=== PATIENT | female | born 1960 | race Caucasian/White ===

== ENCOUNTER 2016-11-08 18:24 | Emergency (ER) | payer OTHER ==
[2016-11-08 18:44] VITALS: TEMP 36.9; Ht 177.8 cm
[2016-11-08] MEDS ORDERED: HYDROCODONE/ACETAMOPHEN 5/325MG TAB PO ONE (19:00)
--- NOTE | 2016-11-08 19:47 | DIAGNOSTIC IMAGING REPORT ---
LEFT ANKLE MIN 3 VIEWS ROUTINE CLINICAL HISTORY: Fall. Left ankle pain trauma. Pain. COMPARISON: None. DISCUSSION: Oblique fracture distal fibula. Ankle mortise is aligned anatomically. Moderate soft tissue edema IMPRESSION: Oblique fracture distal fibula Electronically signed by: Hugo Boone M.D. 11/08/2016 7:46 PM Dictated Date/Time: 11/08/2016 7:45 PM
--- NOTE | 2016-11-08 19:49 | DIAGNOSTIC IMAGING REPORT ---
RIGHT ANKLE MIN 3 VIEWS ROUTINE CLINICAL HISTORY: Fall. Right ankle pain Right trauma COMPARISON: None. DISCUSSION: The bones and joint spaces appear intact. There is no evidence of fracture, dislocation or bony disease. Mild soft tissue edema. Ankle mortise is aligned anatomically IMPRESSION: Mild soft tissue edema. No acute bony abnormality. Electronically signed by: Hugo Boone M.D. 11/08/2016 7:47 PM Dictated Date/Time: 11/08/2016 7:47 PM
--- NOTE | 2016-11-08 19:49 | DIAGNOSTIC IMAGING REPORT ---
LEFT KNEE 3 VIEWS CLINICAL HISTORY: Fall. Left knee trauma. Pain. COMPARISON: None. DISCUSSION: The bones and joint spaces appear intact. There is no evidence of fracture, dislocation or bony disease. There is no evidence for soft tissue swelling. IMPRESSION: Negative study. Electronically signed by: Hugo Boone M.D. 11/08/2016 7:48 PM Dictated Date/Time: 11/08/2016 7:48 PM
[2016-11-08] MEDS ORDERED: HYDR-5688 PO (20:06)
[2016-11-08] MEDS ORDERED: NORCO 5/325MG HOME PACK PO ONE (20:15)
[2016-11-08 21:20] VITALS: BP 136/84; PULSE 80; O2SAT 99
--- NOTE | 2016-11-09 11:32 | EMERGENCY ROOM VISIT NOTE ---
History First contact with patient: 18:47 Chief Complaint: ANKLE PAIN Stated Complaint: FELL- INJURED LEFT ANKLE, RIGHT ANKLE PAIN History of Present Illness The patient is a 56 year old female who presents to the Emergency Room with complaints of left knee and bilateral ankle pain after falling down 3 steps at home. The patient states that she felt a crack after the fall, and was not able to walk on her left leg. The patient does not have a history of significant injury to her lower extremities in the past. She did not strike her head or lose consciousness. No laceration or bleeding. The injury occurred less than one hour ago. She has not taken anything [id number] for her discomfort. Her discomfort worsens with attempted weightbearing and palpation of her left ankle. She rates her discomfort a 4/10 at rest and 9/10 with certain movement. Review of Systems More than 10 systems were reviewed and otherwise negative with the exception of history of present illness. Past Medical/Surgical History No chronic medical disease Family History No pertinent family history Social History Smoking Status: Never Smoker Housing Status: lives with family Current/Historical Medications Scheduled PRN Hydrocodone/Acetaminophen 5MG/325MG ([place] 5MG/325MG), 1-2 TABLET PO Q6 PRN for Pain Allergies Coded Allergies: Penicillins (Verified Allergy, Unknown, hives, 11/08/16) Physical Exam Vital Signs Date Time Temp Pulse Resp B/P Pulse Ox O2 Delivery O2 Flow Rate FiO2 11/08/16 21:20 80 18 136/84 99 11/08/16 18:44 36.9 80 18 136/84 99 Room Air Pain Rating (0-10): 0 Physical Exam VITALS: Vitals are noted on the nurse's note and reviewed by myself. Vital signs stable. GENERAL: Well-developed, well-nourished, white female who is in mild to moderate discomfort secondary to her stated complaint. Patient is cooperative with the examination. HEAD: Normocephalic atraumatic. HEART: Regular rate and rhythm without murmurs gallops or rubs. LUNGS: Clear to auscultation bilaterally without wheezes, rales or rhonchi. No retractions or accessory muscle use. MUSCULOSKELETAL: Mild tenderness without ecchymosis or edema of the right ankle is appreciated. Left knee is mildly tender over the patella. Negative anterior and posterior drawers. No ligamentous laxity. The left ankle is notably tender over the lateral malleolus with giving edema. There is no tenderness of the bilateral feet and neurovascular status is intact to the distal lower extremities. NEURO: Patient was alert and oriented to person place and time. CN II through XII grossly intact. Medical Decision & Procedures ER Provider Diagnostic Interpretation: LEFT ANKLE MIN 3 VIEWS ROUTINE CLINICAL HISTORY: Fall. Left ankle pain trauma. Pain. COMPARISON: None. DISCUSSION: Oblique fracture distal fibula. Ankle mortise is aligned anatomically. Moderate soft tissue edema IMPRESSION: Oblique fracture distal fibula RIGHT ANKLE MIN 3 VIEWS ROUTINE CLINICAL HISTORY: Fall. Right ankle pain Right trauma COMPARISON: None. DISCUSSION: The bones and joint spaces appear intact. There is no evidence of fracture, dislocation or bony disease. Mild soft tissue edema. Ankle mortise is aligned anatomically IMPRESSION: Mild soft tissue edema. No acute bony abnormality. LEFT KNEE 3 VIEWS CLINICAL HISTORY: Fall. Left knee trauma. Pain. COMPARISON: None. DISCUSSION: The bones and joint spaces appear intact. There is no evidence of fracture, dislocation or bony disease. There is no evidence for soft tissue swelling. IMPRESSION: Negative study. Medications Administered Medications (Trade) Dose Ordered Sig/Clare Route Start Time Stop Time Status Last Admin Dose Admin Acetaminophen/ Hydrocodone Bitart ([place] 5/325 Tab) 2 tab NOW ONCE PO 11/08/16 19:00 11/08/16 19:01 DC 11/08/16 19:31 2 TAB Acetaminophen/ Hydrocodone Bitart ([place] 5/325mg Home Pack) 1 homepack UD ONCE PO 11/08/16 20:15 11/08/16 20:16 DC 11/08/16 21:14 1 HOMEPACK ED Course Physical exam and history were performed. Nursing notes and EMR were reviewed. Patient appears to have fallen and suffered injury to her ankles and her left knee. On exam she has edema and ecchymosis over the lateral malleolus of the left ankle. The patient was given oral Vicodin here in the department and x- rays were performed. X-rays were notable for a distal left fibula fracture, which clinically correlates with the patient's symptoms. No significant findings were noted of the left knee or right ankle. I discussed options of care with the patient, and she will be placed in an Ortho-Glass splint. This was performed with neurovascular status remaining intact. I offered the patient crutches, but she had a preference for a walker, and she was provided a walker. The patient will need to follow with orthopedics and was given the information for [facility]. She will also be given a prescription of Vicodin for pain control. She was otherwise invited back to the ER with any new, worsening, or concerning symptoms. The chart was completed utilizing [employer] Speech Voice Recognition Software. Grammatical errors, random word insertions, pronoun errors, and incomplete sentences are an occasional consequence of this system due to software limitations, ambient noise, and hardware issues. Any formal questions or concerns about the content, text, or information contained within the body of this dictation should be directly addressed to the provider for clarification. . Medical Decision Differential diagnosis includes, but is not limited to: Sprain, strain, fracture , dislocation, subluxation, contusion, and others Impression Primary Impression: Fracture of distal end of left fibula Additional Impression: Fall Departure Information Dispostion Home / Self-Care Condition GOOD Prescriptions Hydrocodone/Acetaminophen 5MG/325MG ([place] 5MG/325MG) Tab 1-2 TABLET PO Q6 Y for Pain, #24 TAB For Initial Treatment Prov: Brian Wise PA-C 11/08/16 Referrals Barrett Ho D.O. Forms HOME CARE DOCUMENTATION FORM, IMPORTANT VISIT INFORMATION Patient Instructions My [facility], ED Fx Ankle General, ED Compartment Syndrome At Risk For Additional Instructions You were seen and evaluated today on an emergency basis only. This is not a substitute for, or an effort to provide, complete comprehensive medical care. It is not possible to recognize and treat all injuries or illnesses in a single emergency department visit. For this reason it is recommended that you followup with [facility] , Dr. Ho's office, by telephone on Friday. Call at 8 AM when the office opens and let them know you were seen in the emergency department. They will help schedule your appointment next week. For baseline pain relief you may alternate ibuprofen and acetaminophen every 4 hours for pain control. Take 600 mg ibuprofen (Advil) and then 4 hours later take 1000 mg acetaminophen (Tylenol). Do not take more than 3000 mg acetaminophen in a single day. [place] (hydrocodone/acetaminophen) 5/325 mg ONE or TWO every 6 hours as needed for worsening breakthrough pain. Do not drink or drive on [place]. This medication will likely make you tired. Do not take [place] and Tylenol at the same time as both contain acetaminophen. [place] may cause constipation. You may wish to take an [id number] stool softener like Colace if this occurs. Do not get your splint wet. Use your walker at all times. Take every precaution to prevent falling. You are welcome to return to the emergency department anytime with new, worsening, or concerning symptoms. Problem Qualifiers
== END 2016-11-08 21:22 | disposition home or self-care (01) ==
LOC: C.EDB 18:27 → C.EDD 21:22
DX: S82.62XA Displaced fracture of lateral malleolus of left fibula, initial encounter for closed fracture (principal); M25.571 Pain in right ankle and joints of right foot; M25.562 Pain in left knee; W10.8XXA Fall (on) (from) other stairs and steps, initial encounter; Y92.019 Unspecified place in single-family (private) house as the place of occurrence of the external cause; R60.9 Edema, unspecified

== ENCOUNTER 2016-12-08 17:09 | Inpatient (IN) | payer OTHER ==
[~2016-12-08] VITALS: Ht 180.3 cm; Wt 87.0 kg
[~2016-12-08 17:09] MED LIST: HYDR-5688 PO
[2016-12-08] MEDS ORDERED: IBUP-1050 PO (18:01)
[2016-12-08 18:10] LABS: BASO % 0.3 %; BASO ABS # 0.02 K/uL (0-0.2); COMPLETE YES; EOS % 2.7 %; HEMATOCRIT 38.7 % (37-47); LYMPH % 20.2 %; LYMPH ABS # 1.37 K/uL (1.2-3.4); MEAN CELL VOLUME 94.9 fL (80-100); MEAN CORPUSCULAR HEMOGLOBIN 32.1 pg (25-34); MEAN CORPUSCULAR HGB CONC 33.9 g/dl (32-36); MEAN PLATELET VOLUME 11.2 fL (7.4-10.4); MONO % 8.7 %; NEUT % 68.1 %; PLATELET COUNT 192 K/uL (130-400); RED BLOOD COUNT 4.08 M/uL (4.2-5.4); WHITE BLOOD COUNT 6.79 K/uL (4.8-10.8)
[2016-12-08 18:28] LABS: ALT/SGPT 20 U/L (12-78); AST/SGOT 12 U/L (15-37); BLOOD UREA NITROGEN 14 mg/dl (7-18); BUN/CREATININE RATIO 13.7 (10-20); CALCIUM 9.4 mg/dl (8.5-10.1); CARBON DIOXIDE 28 mmol/L (21-32); CHLORIDE 103 mmol/L (98-107); GLUCOSE 80 mg/dl (70-99); POTASSIUM 4.5 mmol/L (3.5-5.1); SODIUM 139 mmol/L (136-145)
[2016-12-08 18:31] LABS: ALB/GLOB RATIO 1.2 (0.9-2); ALKALINE PHOSPHATASE 86 U/L (45-117)
[2016-12-08 18:36] LABS: PROTHROMBIN TIME (PATIENT) 10.5 SECONDS (9.0-12.0)
--- NOTE | 2016-12-08 18:45 | DIAGNOSTIC IMAGING REPORT ---
ULTRASOUND LEFT LOWER EXTREMITY VENOUS CLINICAL HISTORY: Left leg pain and swelling. COMPARISON STUDY: No priors. TECHNIQUE: Real-time, grayscale, and color Doppler sonography of the deep veins of the left lower extremity was performed from the inguinal crease to the calf. Compression and augmentation were utilized. FINDINGS: There is nonocclusive deep venous thrombosis identified in the left calf within the peroneal vein. The remaining calf vessels are patent. No above knee deep venous thrombosis identified in the left lower extremity. The common femoral, superficial femoral, and popliteal veins are patent and normally compressible. The greater saphenous vein and the profunda femoris vein at the junction with the common femoral vein are clear. IMPRESSION: 1. There is nonocclusive deep venous thrombosis identified in the left calf within the peroneal vein. 2. There is no sonographic evidence of above knee deep venous thrombosis identified in the left lower extremity. Electronically signed by: Yemi Villatoro M.D. 12/08/2016 6:43 PM Dictated Date/Time: 12/08/2016 6:41 PM
--- NOTE | 2016-12-08 19:59 | DIAGNOSTIC IMAGING REPORT ---
CT VENOGRAM OF THE PELVIS CLINICAL HISTORY: Cyanosis of the left leg. Left lower extremity deep venous thrombosis. Reported history of recent left leg fracture. COMPARISON STUDY: Ultrasound of the left lower extremity dated 12/08/2016. TECHNIQUE: CT venogram of the pelvis is performed from the pelvic inlet to the proximal femora following the IV administration of 116 cc of Optiray 320. Images reviewed in the axial, sagittal, and coronal planes. IV contrast was administered without complication. CT DOSE: 319.89 mGy.cm FINDINGS: The right iliac veins and the right common femoral vein opacify normally with IV contrast. There is extensive and occlusive appearing deep venous thrombosis identified throughout the left iliac venous system. This extends from the iliac bifurcation to the left common femoral artery, and involves both the left internal and external iliac veins. There is mild stranding around the left internal and external iliac veins. The iliac arteries are widely patent. The bladder, uterus, and adnexa are normal as visualized. The visualized bowel loops are normal in caliber. A normal appendix is identified. There is no pelvic sidewall or inguinal lymphadenopathy. There is a small fat-containing umbilical hernia. The bony pelvis an proximal femora are maintained. IMPRESSION: 1. Extensive deep venous thrombosis is identified involving the left pelvic veins. This extends from the iliac bifurcation into the left common femoral vein. 2. The deep veins in the right pelvis are patent. 3. The pelvic viscera is normal in appearance. Electronically signed by: Yemi Villatoro M.D. 12/08/2016 7:57 PM Dictated Date/Time: 12/08/2016 7:49 PM
[2016-12-08] MEDS ORDERED: OPTIRAY 320 IV PRN (20:00)
[2016-12-08] MEDS ORDERED: HEPARIN 25000 UNIT/500 ML D5W ONE (20:33)
[2016-12-08] MEDS ORDERED: HEPARIN SOD 5000 UNIT/0.5 ML CARP ONE (20:33)
--- NOTE | 2016-12-08 20:38 | EMERGENCY ROOM VISIT NOTE ---
History Report prepared by Kelly: Francisco Javier Hodges Under the Supervision of: Dr. Tano Devi D.O. First contact with patient: 17:30 Chief Complaint: LEG PAIN,LEG INJURY Stated Complaint: SWOLLEN LFT LEG,PAIN,PURPLE History of Present Illness The patient is a 56 year old female who presents to the Emergency Room with complaints of sudden left leg pain starting this afternoon around 1400. The patient states that about a month ago she broke her fibula, and she was put in an Aircast. She states that earlier this afternoon she felt lower back pain, and she noticed that her leg was swollen, discolored, it feels tight and achy, and it is weak. The patient states that she took Ibuprofen, and it helped her lower back pain. The patient additionally states that when she fell a month ago she also fell on her knee. The patient states that she wears her Aircast boot every day, and she noticed the swelling and discoloration around 1400 today. She states that she was stretching on the floor to relieve her back pain, and then one hour afterwards she started to feel this pain in her leg. Source of History: patient Onset: 1400 Position: leg (left) Quality: ache, other (swelling) Timing: other (sudden) Note: Associated symptoms: Swelling and discoloration Review of Systems See HPI for pertinent positives & negatives. A total of 10 systems reviewed and were otherwise negative. Past Medical & Surgical Medical Problems: (1) Bunion (2) Fracture of fibula Family History Patient reports no known family medical history. Social History Smoking Status: Never Smoker Marital Status: single Housing Status: lives alone Occupation Status: employed Current/Historical Medications Scheduled Ibuprofen (Advil), 200-600 MG PO Q4H Scheduled PRN Hydrocodone/Acetaminophen 5MG/325MG ([place] 5MG/325MG), 1-2 TABLET PO Q6 PRN for Pain Allergies Coded Allergies: Penicillins (Verified Allergy, Unknown, hives, 12/08/16) Physical Exam Vital Signs Date Time Temp Pulse Resp B/P Pulse Ox O2 Delivery O2 Flow Rate FiO2 12/08/16 19:00 76 16 108/66 98 Room Air 12/08/16 17:17 36.9 90 18 116/80 94 Room Air Physical Exam CONSTITUTIONAL/VITAL SIGNS: Reviewed / noted above. GENERAL: Non-toxic in appearance. INTEGUMENTARY: Warm, dry, and [place]. HEAD: Normocephalic. EYES: without scleral icterus or trauma. ENT/OROPHARYNX: clear and moist. LYMPHADENOPATHY/NECK: Is supple without lymphadenopathy or meningismus. RESPIRATORY: Lungs clear and equal. CARDIOVASCULAR: Regular rate and rhythm. GI/ABDOMEN: Soft and nontender. No organomegaly or pulsatile mass. No rebound or guarding. Normal bowel sounds. EXTREMITIES: Has left lower extremity edema and slight bluish discoloration.. BACK: No CVA tenderness. NEUROLOGICAL: Intact without focal deficits. PSYCHIATRIC: normal affect. MUSCULOSKELETAL: Normally developed with good muscle tone. Medical Decision & Procedures ER Provider Diagnostic Interpretation: Radiology results as stated below per my review and radiologist interpretation: ULTRASOUND LEFT LOWER EXTREMITY VENOUS CLINICAL HISTORY: Left leg pain and swelling. COMPARISON STUDY: No priors. TECHNIQUE: Real-time, grayscale, and color Doppler sonography of the deep veins of the left lower extremity was performed from the inguinal crease to the calf. Compression and augmentation were utilized. FINDINGS: There is nonocclusive deep venous thrombosis identified in the left calf within the peroneal vein. The remaining calf vessels are patent. No above knee deep venous thrombosis identified in the left lower extremity. The common femoral, superficial femoral, and popliteal veins are patent and normally compressible. The greater saphenous vein and the profunda femoris vein at the junction with the common femoral vein are clear. IMPRESSION: 1. There is nonocclusive deep venous thrombosis identified in the left calf within the peroneal vein. 2. There is no sonographic evidence of above knee deep venous thrombosis identified in the left lower extremity. Electronically signed by: Yemi Villatoro M.D. 12/08/2016 6:43 PM Dictated Date/Time: 12/08/2016 6:[address] VENOGRAM OF THE PELVIS CLINICAL HISTORY: Cyanosis of the left leg. Left lower extremity deep venous thrombosis. Reported history of recent left leg fracture. COMPARISON STUDY: Ultrasound of the left lower extremity dated 12/08/2016. TECHNIQUE: CT venogram of the pelvis is performed from the pelvic inlet to the proximal femora following the IV administration of 116 cc of Optiray 320. Images reviewed in the axial, sagittal, and coronal planes. IV contrast was administered without complication. CT DOSE: 319.89 mGy.cm FINDINGS: The right iliac veins and the right common femoral vein opacify normally with IV contrast. There is extensive and occlusive appearing deep venous thrombosis identified throughout the left iliac venous system. This extends from the iliac bifurcation to the left common femoral artery, and involves both the left internal and external iliac veins. There is mild stranding around the left internal and external iliac veins. The iliac arteries are widely patent. The bladder, uterus, and adnexa are normal as visualized. The visualized bowel loops are normal in caliber. A normal appendix is identified. There is no pelvic sidewall or inguinal lymphadenopathy. There is a small fat-containing umbilical hernia. The bony pelvis an proximal femora are maintained. IMPRESSION: 1. Extensive deep venous thrombosis is identified involving the left pelvic veins. This extends from the iliac bifurcation into the left common femoral vein. 2. The deep veins in the right pelvis are patent. 3. The pelvic viscera is normal in appearance. Electronically signed by: Yemi Villatoro M.D. 12/08/2016 7:57 PM Dictated Date/Time: 12/08/2016 7:49 PM Laboratory Results 12/08/16 17:55 Red Blood Count 4.08, Mean Corpuscular Volume 94.9, Mean Corpuscular Hemoglobin 32.1, Mean Corpuscular Hemoglobin Concent 33.9, Mean Platelet Volume 11.2, Neutrophils (%) (Auto) 68.1, Lymphocytes (%) (Auto) 20.2, Monocytes (%) (Auto) 8.7, Eosinophils (%) (Auto) 2.7, Basophils (%) (Auto) 0.3, Neutrophils # (Auto) 4.63, Lymphocytes # (Auto) 1.37, Monocytes # (Auto) 0.59, Eosinophils # (Auto) 0.18, Basophils # (Auto) 0.02 12/08/16 17:55 Test 12/08/16 17:55 White Blood Count 6.79 K/uL (4.8-10.8) Red Blood Count 4.08 M/uL (4.2-5.4) Hemoglobin 13.1 g/dL (12.0-16.0) Hematocrit 38.7 % (37-47) Mean Corpuscular Volume 94.9 fL (80-100) Mean Corpuscular Hemoglobin 32.1 pg (25-34) Mean Corpuscular Hemoglobin Concent 33.9 g/dl (32-36) Platelet Count 192 K/uL (130-400) Mean Platelet Volume 11.2 fL (7.4-10.4) Neutrophils (%) (Auto) 68.1 % Lymphocytes (%) (Auto) 20.2 % Monocytes (%) (Auto) 8.7 % Eosinophils (%) (Auto) 2.7 % Basophils (%) (Auto) 0.3 % Neutrophils # (Auto) 4.63 K/uL (1.4-6.5) Lymphocytes # (Auto) 1.37 K/uL (1.2-3.4) Monocytes # (Auto) 0.59 K/uL (0.11-0.59) Eosinophils # (Auto) 0.18 K/uL (0-0.5) Basophils # (Auto) 0.02 K/uL (0-0.2) RDW Standard Deviation 45.7 fL (36.4-46.3) RDW Coefficient of Variation 13.2 % (11.5-14.5) Immature Granulocyte % (Auto) 0.0 % Immature Granulocyte # (Auto) 0.00 K/uL (0.00-0.02) Prothrombin Time 10.5 SECONDS (9.0-12.0) Prothromb Time International Ratio 1.0 (0.9-1.1) Activated Partial Thromboplast Time 24.7 SECONDS (21.0-31.0) Partial Thromboplastin Ratio 1.0 D-Dimer 4370 ug/L FEU (0-500) Anion Gap 8.0 mmol/L (3-11) Estimated GFR () 74.0 Estimated GFR (Non- 63.8 BUN/Creatinine Ratio 13.7 (10-20) Calcium Level 9.4 mg/dl (8.5-10.1) Total Bilirubin 0.5 mg/dl (0.2-1) Aspartate Amino Transf (AST/SGOT) 12 U/L (15-37) Alanine Aminotransferase (ALT/SGPT) 20 U/L (12-78) Alkaline Phosphatase 86 U/L (45-117) Total Protein 8.0 gm/dl (6.4-8.2) Albumin 4.4 gm/dl (3.4-5.0) Globulin 3.6 gm/dl (2.5-4.0) Albumin/Globulin Ratio 1.2 (0.9-2) Laboratory results as stated above per my review. ED Course 1729: Previous medical records were reviewed. The patient was evaluated in room C2. A complete history and physical examination was performed. 2002: Heparin Sodium/ Dextrose 1 ea IV 2005: I discussed the patient's case with Dr. Roldan, Vascular Surgery, and he thinks that the patient should be admitted to the hospital for anticoagulation. 2009: I reevaluated the patient, and she was resting. 2024: I discussed the patient's case with Dr. Nichols. He is going to evaluate the patient for further treatment 2032: Heparin Sq 5000 Unit/0.5ml 70724 units IV Medical Decision Differential diagnosis: Etiologies such as DVT, musculoskeletal, infection, joint effusion, trauma, lymphedema, idiopathic, CHF, as well as others were entertained. This is a 56-year-old female who presents to the ED with a chief complaint of left leg pain. The patient states that her symptoms started suddenly around 2 PM today she developed swelling, heaviness and bluish discoloration of her leg. She presented to the emergency department for evaluation of this. The patient has been in a left lower extremity boot for a nonsurgical fracture of her left distal fibula. This occurred several weeks ago. The patient states that she was feeling fine up until this occurred around 2 PM. This occurred shortly after she was doing some stretching. Her vital signs are stable. Her physical exam revealed diminished dorsalis pedis pulses and good posterior tibial pulse IS on the left. There is some mild diffuse edema to the left lower extremity starting just below the inguinal region. There is a slight cyanotic discoloration. The patient has good femoral pulses. CBC is normal. Chemistry panel was normal. D-dimer is 4370. Chest x-ray was negative for acute disease. Ultrasound of the left leg reveals a nonocclusive DVT in the left calf peroneal vein. CT scan of the pelvis reveals an extensive clot in the left iliac vessel. I spoke with Dr. Roldan about this patient. At this time, he does not feel clot aspiration would be of benefit and recommends anticoagulation with IV heparin. The patient was started on IV heparin. I spoke with Dr. Nelson (hospitalist)who will see the patient for further inpatient evaluation and care. Consults Time Called: 2002 Consulting Physician: Dr. Roldan, Vascular Surgery Returned Call: 2005 I discussed the patient's case with Dr. Roldan, Vascular Surgery, and he thinks that the patient should be admitted to the hospital for anticoagulation. Additional Consults: Time Called: 2019 Consulted Physician: Dr. Nichols Returned Call: 2024 Additional Comments: I discussed the patient's case with Dr. Nichols. He is going to evaluate the patient for further treatment. Impression Primary Impression: Thrombosis of left iliac vein Scribe Attestation The scribe's documentation has been prepared under my direction and personally reviewed by me in its entirety. I confirm that the note above accurately reflects all work, treatment, procedures, and medical decision making performed by me. Departure Information Dispostion Being Evaluated By Hospitalist Jovany Hinton M.D. (PCP)
[2016-12-08 21:57] VITALS: BP 114/88; PULSE 75; TEMP 36.9; O2SAT 96; Ht 180.3 cm; Wt 87.0 kg
[2016-12-08] MEDS ORDERED: ZOLPIDEM TARTRATE 5 MG TAB PO PRN (22:00)
[2016-12-08] MEDS ORDERED: MoRPHine SULFATE 2 MG/ML CARP IV PRN (22:00)
[2016-12-08] MEDS ORDERED: OXYCODONE/ACETAMINOPHEN 5-325 TAB PO PRN (22:00)
[2016-12-08] MEDS ORDERED: ALUMINUM/MAGNESIUM/SIMETH (MAALOX MAX) 30 ML UDC PO PRN (22:00)
[2016-12-08] MEDS ORDERED: MAGNESIUM HYDROXIDE SUSP 30 ML UDC PO PRN (22:00)
[2016-12-08] MEDS ORDERED: POLYETHYLENE (MIRALAX) 17 GM PACK PO PRN (22:00)
[2016-12-08] MEDS ORDERED: ONDANSETRON INJ 2 MG/ML 2 ML VIAL IV PRN (22:00)
--- NOTE | 2016-12-08 22:14 | History and Physical ---
History & Physical Date & Time of Service: Dec 08, 2016 at 21:57 Chief Complaint: Swollen Lft Leg,Pain,Purple Primary Care Physician: No Doctor, Assigned History of Present Illness Source: patient 56 y/o F without significant medical history - pt suffered an oblique fracture of the L distal fibula 1 month prior and has been walking in a boot since. She did not require surgery. She developed pain and swelling in her leg over the past few days and then acute back pain this afternoon when she lay on her back to stretch. She noted bluish red discoloration of her leg and presented for evaluation. Initial US revealed only a small, nonocclusive peronial DVT however she was then sent for an abdominal CT which revealed an ileofemoral DVT. She will be admitted overnight for anticoagulation, telemetry monitoring and AM evaluation by the vascular service. Past Medical/Surgical History Denies previous medical issues Family History Patient reports no known family medical history. No history of DVTs / PEs or hypercoag disorders on the family Social History Pt smoked 1/2 pack daily until early 2015 Smoking Status: Former Smoker Marital Status: single Occupational Status: employed Multi-Drug Resistant Organisms History of MDRO: No Allergies Coded Allergies: Penicillins (Verified Allergy, Unknown, hives, 12/08/16) Home Medications Scheduled Ibuprofen (Advil), 200-600 MG PO Q4H Scheduled PRN Hydrocodone/Acetaminophen 5MG/325MG ([place] 5MG/325MG), 1-2 TABLET PO Q6 PRN for Pain Review of Systems Constitutional: No chills, No fever Physical Exam Vital Signs Date Time Temp Pulse Resp B/P Pulse Ox O2 Delivery O2 Flow Rate FiO2 12/08/16 20:46 75 12/08/16 20:37 81 16 114/88 96 12/08/16 19:00 76 16 108/66 98 Room Air 12/08/16 17:17 36.9 90 18 116/80 94 Room Air Diagnostics Laboratory Results Results Past 24 Hours Test 12/08/16 17:55 Range/Units White Blood Count 6.79 4.8-10.8 K/uL Red Blood Count 4.08 4.2-5.4 M/uL Hemoglobin 13.1 12.0-16.0 g/dL Hematocrit 38.7 37-47 % Mean Corpuscular Volume 94.9 80-100 fL Mean Corpuscular Hemoglobin 32.1 25-34 pg Mean Corpuscular Hemoglobin Concent 33.9 32-36 g/dl Platelet Count 192 130-400 K/uL Mean Platelet Volume 11.2 7.4-10.4 fL Neutrophils (%) (Auto) 68.1 % Lymphocytes (%) (Auto) 20.2 % Monocytes (%) (Auto) 8.7 % Eosinophils (%) (Auto) 2.7 % Basophils (%) (Auto) 0.3 % Neutrophils # (Auto) 4.63 1.4-6.5 K/uL Lymphocytes # (Auto) 1.37 1.2-3.4 K/uL Monocytes # (Auto) 0.59 0.11-0.59 K/uL Eosinophils # (Auto) 0.18 0-0.5 K/uL Basophils # (Auto) 0.02 0-0.2 K/uL RDW Standard Deviation 45.7 36.4-46.3 fL RDW Coefficient of Variation 13.2 11.5-14.5 % Immature Granulocyte % (Auto) 0.0 % Immature Granulocyte # (Auto) 0.00 0.00-0.02 K/uL Prothrombin Time 10.5 9.0-12.0 SECONDS Prothromb Time International Ratio 1.0 0.9-1.1 Activated Partial Thromboplast Time 24.7 21.0-31.0 SECONDS Partial Thromboplastin Ratio 1.0 D-Dimer 4370 0-500 ug/L FEU Sodium Level 139 136-145 mmol/L Potassium Level 4.5 3.5-5.1 mmol/L Chloride Level 103 98-107 mmol/L Carbon Dioxide Level 28 21-32 mmol/L Anion Gap 8.0 3-11 mmol/L Blood Urea Nitrogen 14 7-18 mg/dl Creatinine 1.00 0.60-1.20 mg/dl Estimated GFR () 74.0 Estimated GFR (Non- 63.8 BUN/Creatinine Ratio 13.7 10-20 Random Glucose 80 70-99 mg/dl Calcium Level 9.4 8.5-10.1 mg/dl Total Bilirubin 0.5 0.2-1 mg/dl Aspartate Amino Transf (AST/SGOT) 12 15-37 U/L Alanine Aminotransferase (ALT/SGPT) 20 12-78 U/L Alkaline Phosphatase 86 45-117 U/L Total Protein 8.0 6.4-8.2 gm/dl Albumin 4.4 3.4-5.0 gm/dl Globulin 3.6 2.5-4.0 gm/dl Albumin/Globulin Ratio 1.2 0.9-2 Diagnostic Radiology US LLE: Nonocclusive deep venous thrombosis identified in the left calf within the peroneal vein. CT pelvis: Extensive deep venous thrombosis is identified involving the left pelvic veins. This extends from the iliac bifurcation into the left common femoral vein. Impression Assessment and Plan 56 y/o F without significant medical history - pt suffered an oblique fracture of the L distal fibula 1 month prior and has been walking in a boot since. She did not require surgery. She developed pain and swelling in her leg over the past few days and then acute back pain this afternoon when she lay on her back to stretch. She noted bluish red discoloration of her leg and presented for evaluation. Initial US revealed only a small, nonocclusive peronial DVT however she was then sent for an abdominal CT which revealed an ileofemoral DVT. She will be admitted overnight for anticoagulation, telemetry monitoring and AM evaluation by the vascular service. Pt is admitted to telemetry - vascular surgery consulted - placed on Heparin and will be kept NPO after midnight - we will monitor her LLE with vascular cjeck overnight. If no intervention is imminent, she can likely be transitioned to an oral med or Lovenox for DC Full code - full dose Heparin Total time for this admit including review of labs , med , imaging - discussion with pt and ER attending 34 min Level of Care Telemetry Resuscitation Status FULL RESUSCITATION VTE Prophylaxis VTE Risk Assessment Done? Y/N: Yes Risk Level: High Given or contraindicated: Other Anticoagulation
[2016-12-08] MEDS: D5W AND NSS 1,000 ML IV SCH (22:38)
[2016-12-08 22:50] VITALS: BP 121/79; PULSE 71; TEMP 36.7; O2SAT 97
[2016-12-08] MEDS: HEPARIN 25,000 UNIT/500ML D5W 500 ML IV PRN (23:43)
[2016-12-09 03:39] VITALS: BP 112/74; PULSE 64; TEMP 36.7; O2SAT 98
[2016-12-09 07:24] VITALS: BP 100/66; PULSE 65; TEMP 36.8; O2SAT 96
[2016-12-09 07:41] LABS: PARTIAL THROMBOPLASTIN RATIO 2.8
[2016-12-09] MEDS: D5W AND NSS 1,000 ML IV SCH ×2 (08:12→18:15)
--- NOTE | 2016-12-09 09:57 | Family Medicine Progress Note ---
Progress Note Date of Service Dec 09, 2016. Subjective Pt evaluation today including: conversation w/ patient, physical exam, chart review, lab review, review of studies, review of inpatient medication list Voiding: no voiding problems, no incontinence Swelling still present in right lower leg. Similar to yesterday. Minimal pain. Denies chest pain or shortness of breath. All Other Systems: Reviewed and Negative Medications Current Inpatient Medications Medications (Trade) Dose Ordered Sig/Clare Route Start Time Stop Time Status Last Admin Dose Admin Ioversol (Optiray 320) 116 ml UD PRN IV 12/08/16 20:00 12/12/16 19:59 Acetaminophen (Tylenol Tab) 650 mg Q4H PRN PO 12/08/16 22:00 01/07/17 21:59 Al Hydrox/Mg Hydrox/Simethicone (Maalox Max Susp) 15 ml Q4H PRN PO 12/08/16 22:00 01/07/17 21:59 Magnesium Hydroxide (Milk Of Magnesia Susp) 30 ml Q12H PRN PO 12/08/16 22:00 01/07/17 21:59 Zolpidem Tartrate (Ambien Tab) 5 mg HSZ PRN PO 12/08/16 22:00 01/07/17 21:59 Ondansetron HCl (Zofran Inj) 4 mg Q6H PRN IV 12/08/16 22:00 01/07/17 21:59 Morphine Sulfate (MoRPHine SULFATE INJ) 2 mg Q3H PRN IV 12/08/16 22:00 12/22/16 21:59 Polyethylene 17 gm 17 gm DAILY PRN PO 12/08/16 22:00 01/07/17 21:59 Dextrose/Sodium Chloride (D5W And Nss) 1,000 ml @ 100 mls/hr Q10H IV 12/08/16 22:00 01/07/17 21:59 12/09/16 08:12 100 MLS/HR Oxycodone/ Acetaminophen 1 tab 1 tab Q4H PRN PO 12/08/16 22:00 12/22/16 21:59 Heparin Sodium/ Dextrose (Heparin 25,000 Unit/500ml D5W) 500 ml @ 27 mls/hr [id number] PRN IV 12/08/16 23:45 01/07/17 23:44 12/08/16 23:43 27 MLS/HR Miscellaneous Information (Nursing Heparin Iv Rate Change) 1 ea ONE ONCE N/A 12/09/16 09:00 12/09/16 09:01 UNV Objective Vital Signs Date Time Temp Pulse Resp B/P Pulse Ox O2 Delivery O2 Flow Rate FiO2 12/09/16 07:24 36.8 65 18 100/66 96 Room Air 12/09/16 04:00 Room Air 12/09/16 03:39 36.7 64 19 112/74 98 Room Air 12/08/16 22:50 36.7 71 14 121/79 97 Room Air 12/08/16 22:15 72 16 135/81 97 Room Air 12/08/16 21:57 36.9 75 16 114/88 96 Room Air 12/08/16 20:46 75 12/08/16 20:37 81 16 114/88 96 12/08/16 19:00 76 16 108/66 98 Room Air 12/08/16 17:17 36.9 90 18 116/80 94 Room Air Physical Exam General Appearance: WD/WN, no apparent distress Eyes: normal inspection ENT: normal ENT inspection Neck: supple, no JVD Respiratory/Chest: chest non-tender, lungs clear, normal breath sounds, no respiratory distress, no accessory muscle use Cardiovascular: regular rate, rhythm, no murmur Abdomen: normal bowel sounds, non tender, soft, no organomegaly Extremities: normal capillary refill, + calf tenderness (swelling and tednerness in her left leg) Neurologic/Psychiatric: no motor/sensory deficits, alert Skin: warm/dry Laboratory Results 12/08/16 17:55 Red Blood Count 4.08, Mean Corpuscular Volume 94.9, Mean Corpuscular Hemoglobin 32.1, Mean Corpuscular Hemoglobin Concent 33.9, Mean Platelet Volume 11.2, Neutrophils (%) (Auto) 68.1, Lymphocytes (%) (Auto) 20.2, Monocytes (%) (Auto) 8.7, Eosinophils (%) (Auto) 2.7, Basophils (%) (Auto) 0.3, Neutrophils # (Auto) 4.63, Lymphocytes # (Auto) 1.37, Monocytes # (Auto) 0.59, Eosinophils # (Auto) 0.18, Basophils # (Auto) 0.02 12/08/16 17:55 Test 12/08/16 17:55 12/09/16 06:26 White Blood Count 6.79 K/uL (4.8-10.8) Red Blood Count 4.08 M/uL (4.2-5.4) Hemoglobin 13.1 g/dL (12.0-16.0) Hematocrit 38.7 % (37-47) Mean Corpuscular Volume 94.9 fL (80-100) Mean Corpuscular Hemoglobin 32.1 pg (25-34) Mean Corpuscular Hemoglobin Concent 33.9 g/dl (32-36) Platelet Count 192 K/uL (130-400) Mean Platelet Volume 11.2 fL (7.4-10.4) Neutrophils (%) (Auto) 68.1 % Lymphocytes (%) (Auto) 20.2 % Monocytes (%) (Auto) 8.7 % Eosinophils (%) (Auto) 2.7 % Basophils (%) (Auto) 0.3 % Neutrophils # (Auto) 4.63 K/uL (1.4-6.5) Lymphocytes # (Auto) 1.37 K/uL (1.2-3.4) Monocytes # (Auto) 0.59 K/uL (0.11-0.59) Eosinophils # (Auto) 0.18 K/uL (0-0.5) Basophils # (Auto) 0.02 K/uL (0-0.2) RDW Standard Deviation 45.7 fL (36.4-46.3) RDW Coefficient of Variation 13.2 % (11.5-14.5) Immature Granulocyte % (Auto) 0.0 % Immature Granulocyte # (Auto) 0.00 K/uL (0.00-0.02) Prothrombin Time 10.5 SECONDS (9.0-12.0) Prothromb Time International Ratio 1.0 (0.9-1.1) D-Dimer 4370 ug/L FEU (0-500) Anion Gap 8.0 mmol/L (3-11) Estimated GFR () 74.0 Estimated GFR (Non- 63.8 BUN/Creatinine Ratio 13.7 (10-20) Calcium Level 9.4 mg/dl (8.5-10.1) Total Bilirubin 0.5 mg/dl (0.2-1) Aspartate Amino Transf (AST/SGOT) 12 U/L (15-37) Alanine Aminotransferase (ALT/SGPT) 20 U/L (12-78) Alkaline Phosphatase 86 U/L (45-117) Total Protein 8.0 gm/dl (6.4-8.2) Albumin 4.4 gm/dl (3.4-5.0) Globulin 3.6 gm/dl (2.5-4.0) Albumin/Globulin Ratio 1.2 (0.9-2) Activated Partial Thromboplast Time 71.6 SECONDS (21.0-31.0) Partial Thromboplastin Ratio 2.8 Assessment and Plan 56 year old with no significant PMHx present with unilateral leg swelling and extensive occlusiveleft pelvic, iliac and femoral DVT on CT. Provoked DVT - Vascular surgery consulted - considering intravascular thrombolysis - Discussed with Deepali from vascular surgery and decided to keep on IV heparin until intravascular thrombolysis planned for Friday due to extent of clot Code - Full Disposition - Transfer to med/surg as stable but keep as inpatient due to concern of occlusion and size of clot awaiting intravascular thrombolysis planned for Friday Resident Physician Supervision Note: I interviewed and examined the patient. Discussed with Dr. Duong and agree with findings and plan as documented in the note. Any exceptions or clarifications are listed here: None Documented By: Bill Goldman legs swollen. no other complaints. d/w vascular surgery - due to extensiveness and occlusiveness of the clot, she's high risk for ongoing pain/ swelling/etc - hence their plan for ongoing heparin gtt followed by vascular procedure. explained to pt and she expressed understanding. stable otherwise vitals noted, nad, breathing unlabored, no pallor, LLE diffuse edema no erythema. extensive DVT -heparin --> vascular procedure -otherwise stable -can move to med/surg.
--- NOTE | 2016-12-09 11:04 | Surgery Consultation ---
Consultation Date of Service Dec 09, 2016. Chief Complaint LLE iliofemoral DVT History of Present Illness The patient is a 56 year old female without significant medical hx, seen in consultation today for L iliofemoral DVT noted on CT scan yesterday at admission. Pt states she suffered nondisplaced fx of L ankle on 11/08/16 after falling down some steps, and has been in a walking boot since that time. No surgical intervention was required. States she noted pain in L post thigh which she thought was sciatica and began doing stretches on floor. About 1 hr later, her LLE was extremely edematous and appeared reddish-purple. She then came to ED for evaluation. No prior hx of DVT, nor family hx of DVT/PE. States the edema is slightly improved today, but she has not been up on her foot at all since arrival. Denies LUCAS, fever, chills, chest pain, SOB, abd pain , N/V, rest pain, claudication, other complaints. Previous smoker, quit in 2015. Vitals Vital Signs Past 12 Hours Date Time Temp Pulse Resp B/P Pulse Ox O2 Delivery O2 Flow Rate FiO2 12/09/16 07:24 36.8 65 18 100/66 96 Room Air 12/09/16 04:00 Room Air 12/09/16 03:39 36.7 64 19 112/74 98 Room Air Allergies Coded Allergies: Penicillins (Verified Allergy, Unknown, hives, 12/08/16) Home Medications Scheduled Ibuprofen (Advil), 200-600 MG PO Q4H Scheduled PRN Hydrocodone/Acetaminophen 5MG/325MG ([place] 5MG/325MG), 1-2 TABLET PO Q6 PRN for Pain Problem List Medical Problems: (1) Bunion (2) DVT (deep venous thrombosis) (3) Fracture of fibula Surgical / Medical History Hx Cardiac Surgery: No Hx Abdominal Surgery: No Hx Cancer Surgery: No Hx Orthopedic: No Hx Urinary Tract Surgery: No HX Other Surgery: Yes Family History Patient reports no known family medical history. Social History Smoking Status: Former Smoker Hx Tobacco Use In Past Year?: Yes (not in 5 months) Hx Alcohol Use - Type & Amnt: Yes (beer/wine--couple/week) Hx Substance Use -Type & Amnt: No Review of Systems Constitutional: No chills, No fever, No malaise Skin: + change in color Eyes: No visual changes ENMT: No sore throat Respiratory: No ACHARYA, No cough, No hemoptysis, No short of breath Cardiovascular: + edema, No chest pain, No intermittent claudication, No palpitations, No syncope Gastrointestinal: No abdominal pain, No nausea, No vomiting Genitourinary - Female: No dysuria, No hematuria Neurologic: No dizziness, No headache, No lethargy, No numbness, No tingling Physical Exam Constitutional: General Apperance: heathly-appearing, well-nourished, well-developed Level of Distress: NAD Psychiatric: Mental Status: active & alert, normal mood, normal affect Orientation: oriented except where noted, to time, to place, to person Memory: recent memory normal, remote memory normal Head: normocephalic, atraumatic Eyes: EOM: EOMI ENMT: normal ENT inspection, hearing grossly normal Neck: supple, no masses Lungs: Respiratory effort: no dyspnea Auscultation: breath sounds normal, no wheezing, no rales/crackles, no rhonchi Cardiovascular: Apical Impulse: not displaced Heart Auscultation: RRR, no murmurs, no rubs, no gallops Peripheral Pulses: Pulses: full and equal, in all extremities except if noted Bruits: none appreciated Carotid Pulse: normal on the left, normal on the right Brachial Pulses: normal on the left, normal on the right Radial Pulse: normal on the left, normal on the right Femoral Pulse: normal on the left, normal on the right Posterior Tibialis Pulse: normal on the left, normal on the right Dorsalis Pedis Pulse: normal on the left, normal on the right Abdomen: Bowel Sounds: normal Inspection & Palpation: soft, non-distended, no tenderness, guarding & rebound Musculoskeletal: normal strength (5/5 throughout), normal tone Extremities: Upper Right: no cyanosis, no edema, no varicosities Upper Left: no cyanosis, no edema, no varicosities Lower Right: no cyanosis, no edema, no varicosities Lower Left: no cyanosis, no clubbing, no ulcers, edema (+3), pertinent finding (LLE with erythema and significant edema(nearly twice size of RLE), from thigh to foot) Neurologic: Cranial Nerves: grossly intact Sensation: grossly intact Assessment and Plan ASSESSMENT and PLAN: L iliofemoral DVT Pt with occlusive L iliofemoral DVT and at high risk for post thrombotic syndrome if left untreated. After discussion with Dr Jhaveri, recommend LLE venography with thrombolytic infusion, as well as IVC filter insertion. Procedure, risks, benefits, and alternatives discussed with pt, she expresses understanding and agreement. Scheduled in OR on 12/11. Recommend pt remain on heparin drip until procedure. Pt aware. Also discussed with Dr Duong.
[2016-12-09 12:01] VITALS: BP 104/69; PULSE 72; TEMP 36.7; O2SAT 95
[2016-12-09 14:10] VITALS: BP 111/65; PULSE 77; TEMP 36.9; O2SAT 97
[2016-12-09 14:40] LABS: PARTIAL THROMBOPLASTIN RATIO 2.2
[2016-12-09 15:08] VITALS: BP 103/68; PULSE 72; TEMP 37.1; O2SAT 94
[2016-12-09] MEDS: HEPARIN 25,000 UNIT/500ML D5W 500 ML IV PRN (15:29)
[2016-12-09 18:50] LABS: BUN/CREATININE RATIO 10.6 (10-20); CALCIUM 8.4 mg/dl (8.5-10.1); CREATININE 0.95 mg/dl (0.60-1.20); POTASSIUM 3.8 mmol/L (3.5-5.1)
[2016-12-10 00:23] VITALS: BP 124/76; PULSE 69; TEMP 37; O2SAT 96
[2016-12-10] MEDS: D5W AND NSS 1,000 ML IV SCH ×2 (04:00→13:33)
[2016-12-10 06:41] LABS: HEMATOCRIT 33.9 % (37-47); MEAN CELL VOLUME 95.5 fL (80-100); MEAN CORPUSCULAR HEMOGLOBIN 31.8 pg (25-34); MEAN CORPUSCULAR HGB CONC 33.3 g/dl (32-36); MEAN PLATELET VOLUME 11.7 fL (7.4-10.4); PLATELET COUNT 154 K/uL (130-400); RED BLOOD COUNT 3.55 M/uL (4.2-5.4); WHITE BLOOD COUNT 4.02 K/uL (4.8-10.8)
[2016-12-10 07:29] VITALS: BP 104/69; PULSE 61; TEMP 36.7; O2SAT 97
[2016-12-10 07:33] LABS: PARTIAL THROMBOPLASTIN RATIO 2.7
[2016-12-10] MEDS: HEPARIN 25,000 UNIT/500ML D5W 500 ML IV PRN ×3 (07:42→15:17)
--- NOTE | 2016-12-10 09:06 | Family Medicine Progress Note ---
Progress Note Date of Service Dec 10, 2016. Subjective Pt evaluation today including: conversation w/ patient, physical exam, chart review, lab review, review of studies, review of inpatient medication list Voiding: no voiding problems, no incontinence No acute changes overnight. No subjective improvement in leg size. Denies leg pain. Denies shortness of breath or chest pain. All Other Systems: Reviewed and Negative Medications Current Inpatient Medications Medications (Trade) Dose Ordered Sig/Clare Route Start Time Stop Time Status Last Admin Dose Admin Ioversol (Optiray 320) 116 ml UD PRN IV 12/08/16 20:00 12/12/16 19:59 Acetaminophen (Tylenol Tab) 650 mg Q4H PRN PO 12/08/16 22:00 01/07/17 21:59 Al Hydrox/Mg Hydrox/Simethicone (Maalox Max Susp) 15 ml Q4H PRN PO 12/08/16 22:00 01/07/17 21:59 Magnesium Hydroxide (Milk Of Magnesia Susp) 30 ml Q12H PRN PO 12/08/16 22:00 01/07/17 21:59 Zolpidem Tartrate (Ambien Tab) 5 mg HSZ PRN PO 12/08/16 22:00 01/07/17 21:59 Ondansetron HCl (Zofran Inj) 4 mg Q6H PRN IV 12/08/16 22:00 01/07/17 21:59 Morphine Sulfate (MoRPHine SULFATE INJ) 2 mg Q3H PRN IV 12/08/16 22:00 12/22/16 21:59 Polyethylene 17 gm 17 gm DAILY PRN PO 12/08/16 22:00 01/07/17 21:59 Dextrose/Sodium Chloride (D5W And Nss) 1,000 ml @ 100 mls/hr Q10H IV 12/08/16 22:00 01/07/17 21:59 12/10/16 04:00 100 MLS/HR Oxycodone/ Acetaminophen 1 tab 1 tab Q4H PRN PO 12/08/16 22:00 12/22/16 21:59 Heparin Sodium/ Dextrose (Heparin 25,000 Unit/500ml D5W) 500 ml @ 25 mls/hr Q20H PRN IV 12/08/16 23:45 01/07/17 23:44 12/10/16 07:42 25 MLS/HR Objective Vital Signs Date Time Temp Pulse Resp B/P Pulse Ox O2 Delivery O2 Flow Rate FiO2 12/10/16 07:40 Room Air 12/10/16 07:29 36.7 61 20 104/69 97 Room Air 12/10/16 00:23 37.0 69 18 124/76 96 Room Air 12/10/16 00:00 Room Air 12/09/16 16:46 Room Air 12/09/16 15:08 37.1 72 20 103/68 94 Room Air 12/09/16 14:10 36.9 77 18 111/65 97 Room Air 12/09/16 12:01 36.7 72 18 104/69 95 Room Air 12/09/16 12:00 Room Air Physical Exam General Appearance: WD/WN, no apparent distress Respiratory/Chest: chest non-tender, lungs clear, normal breath sounds, no respiratory distress, no accessory muscle use Cardiovascular: regular rate, rhythm, no murmur Abdomen: normal bowel sounds, non tender, soft Extremities: no calf tenderness, + pedal edema (2+ left, 0 right) Neurologic/Psychiatric: alert, oriented x 3 Laboratory Results 12/10/16 06:00 12/09/16 17:50 Test 12/09/16 17:50 12/10/16 06:00 12/10/16 07:30 Anion Gap 7.0 mmol/L (3-11) Est Creatinine Clear Calc Drug Dose 75.6 ml/min Estimated GFR () 78.7 Estimated GFR (Non- 67.9 BUN/Creatinine Ratio 10.6 (10-20) Calcium Level 8.4 mg/dl (8.5-10.1) Red Blood Count 3.55 M/uL (4.2-5.4) Mean Corpuscular Volume 95.5 fL (80-100) Mean Corpuscular Hemoglobin 31.8 pg (25-34) Mean Corpuscular Hemoglobin Concent 33.3 g/dl (32-36) RDW Standard Deviation 47.2 fL (36.4-46.3) RDW Coefficient of Variation 13.6 % (11.5-14.5) Mean Platelet Volume 11.7 fL (7.4-10.4) Activated Partial Thromboplast Time 69.7 SECONDS (21.0-31.0) Partial Thromboplastin Ratio 2.7 Bedside Glucose 103 mg/dl (70-90) Assessment and Plan 56 year old with no significant PMHx present with unilateral leg swelling and extensive occlusive left pelvic, iliac and femoral DVT on CT. Provoked DVT from tibia fracture +/- compression by right iliac artery - reviewed imaging and appears compression of left common iliac vein between the vertebra and right common iliac artery - Vascular surgery consulted - patient for intravascular thrombolysis tomorrow - Continue IV heparin as discussed with vascular team - NPO after midnight Anemia - suspect some dilutional as was on IVF now stopped, monitor given on IV heparin Code - Full Disposition - awaiting vascular intervention Resident Physician Supervision Note: I interviewed and examined the patient. Discussed with Dr. Duong and agree with findings and plan as documented in the note. Any exceptions or clarifications are listed here: None Documented By: Bill Sherman feeling OK. leg about the same. for procedure tomorrow. vitals noted nad breathing unlabored no pallor or icterus, L leg edema the same. R2 reviewed CT w pt in my presence. answered all questions to the best of my ability acute extensive occlusive DVT - heparin gtt, for vascular procedure tomorrow. stable Resident Tracking Resident Involvement: Resident Care Provided Care Provided: Adult Hospital Medicine
[2016-12-10 14:56] VITALS: BP 117/75; PULSE 68; TEMP 37; O2SAT 96
[2016-12-10 16:00] VITALS: O2SAT 96
[2016-12-10 18:43] LABS: BUN/CREATININE RATIO 12.2 (10-20); CALCIUM 9.2 mg/dl (8.5-10.1); CREATININE 0.76 mg/dl (0.60-1.20); POTASSIUM 3.7 mmol/L (3.5-5.1)
[2016-12-11] VITALS (13 sets, daily range): BP systolic 101–146; BP diastolic 65–85; PULSE 63–88; TEMP 36.6–36.8; O2SAT 93–98
[2016-12-11] MEDS: HEPARIN 25,000 UNIT/500ML D5W 500 ML IV PRN (06:36)
[2016-12-11 07:14] LABS: HEMATOCRIT 35.7 % (37-47); MEAN CORPUSCULAR HEMOGLOBIN 31.8 pg (25-34); MEAN CORPUSCULAR HGB CONC 32.8 g/dl (32-36); MEAN PLATELET VOLUME 10.8 fL (7.4-10.4); PLATELET COUNT 164 K/uL (130-400); RED BLOOD COUNT 3.68 M/uL (4.2-5.4); WHITE BLOOD COUNT 4.28 K/uL (4.8-10.8)
[2016-12-11 07:32] LABS: PARTIAL THROMBOPLASTIN RATIO 2.6
[2016-12-11] MEDS ORDERED: SODIUM CHLORIDE 0.9% 1000ML 1,000 ML IV ONE (11:00)
--- NOTE | 2016-12-11 12:40 | Progress Note ---
Progress Note Date of Service Dec 11, 2016. Progress Note Patient for venography and possible thrombolysis of left iliac veins. I have discussed the risks options and benefits of the procedure with the patient. The patient understands the risks options and benefits and agrees to the procedure. I have examined the patient, reviewed the History & Physical and in the interval since the performance of the History & Physical I have noted the following changes of clinical significance: No changes noted
--- NOTE | 2016-12-11 12:40 | Procedure Note ---
Pre-Mod Sedation Assessment General Date of Moderate Sedation: Dec 11, 2016. Vital Signs: Vital Signs Past 12 Hours Date Time Temp Pulse Resp B/P Pulse Ox O2 Delivery O2 Flow Rate FiO2 12/11/16 08:00 Room Air 12/11/16 07:29 36.7 68 16 111/77 98 Room Air Pre-Sedation Airway Assessment Oral Cavity: WNL Smoking Status: Former Smoker Mallampati Classification: Class I ASA Classification: Class II Notes The planned sedation has been discussed with the patient and consent obtained. I have identified the patient, determined the appropriateness of sedation and have assessed the patient immediately prior to the procedure. All medicine(s) and interventions are by my order.
[2016-12-11] MEDS ORDERED: HEPARIN SOD (PORCINE) 1000 UNIT/ML 10 ML VIAL ONE (12:53)
[2016-12-11] MEDS ORDERED: HEPARIN SOD (PORCINE) 5000 UNIT/ML 1 ML VIAL ONE (12:53)
[2016-12-11] MEDS ORDERED: MIDAZOLAM HCL 1 MG/ML 2ML VIAL ONE (12:54)
[2016-12-11] MEDS ORDERED: FENTANYL CITRATE INJ 50 MCG/1 ML 2 ML VIAL ONE (12:54)
[2016-12-11] MEDS ORDERED: HEPARIN 25000 UNIT/500 ML D5W ONE (12:55)
[2016-12-11] MEDS ORDERED: NURSING VERBAL MED ORDER ONE (13:00)
[2016-12-11] MEDS ORDERED: ACETAMINOPHEN IV 1,000 MG in EMPTY BAG 0 ML IV ONE (13:00)
[2016-12-11] MEDS ORDERED: CLINDAMYCIN 600 MG/54 ML D5W IV ONE (13:02)
[2016-12-11] MEDS ORDERED: MIDAZOLAM HCL 1 MG/ML 2ML VIAL IV ONE ×2 (13:46→14:00)
[2016-12-11] MEDS ORDERED: FENTANYL CITRATE INJ 50 MCG/1 ML 2 ML VIAL IV ONE ×2 (13:47→14:01)
[2016-12-11] MEDS ORDERED: LIDOCAINE HCL 1% 20 ML VIAL INJ ONE ×2 (13:51→14:03)
[2016-12-11] MEDS ORDERED: IODIXANOL (VISIPAQUE) 270 MG/ML 150ML FLUSH ONE (14:22)
[2016-12-11] MEDS ORDERED: IODIXANOL (VISIPAQUE) 270 MG/ML 150ML XX ONE (14:25)
[2016-12-11] MEDS ORDERED: ALTEPLASE, RECOMBINANT 0 MG in SODIUM CHLORIDE 0.9% 250ML 250 ML IV ONE ×4 (14:30)
[2016-12-11] MEDS ORDERED: ONDANSETRON INJ 2 MG/ML 2 ML VIAL IV PRN (14:30)
--- NOTE | 2016-12-11 14:52 | Procedure Note ---
Post-Moderate Sedation Plan General Date of Moderate Sedation Dec 11, 2016. Vital Signs: Vital Signs Past 12 Hours Date Time Temp Pulse Resp B/P Pulse Ox O2 Delivery O2 Flow Rate FiO2 12/11/16 13:01 36.7 68 16 111/77 98 Room Air 12/11/16 08:00 Room Air 12/11/16 07:29 36.7 68 16 111/77 98 Room Air Review - Discharge Plan Post Moderate Sedation Plan: On clinical assessment, the patient appears to have tolerated the conscious sedation without complications. Patient is recovering as anticipated. Patient will continue to be monitored by nursing and may be discharged when conscious sedation discharge criteria are met.
--- NOTE | 2016-12-11 14:53 | [facility] Post Operative Brief Note ---
Immediate Operative Summary Operative Date Dec 11, 2016. Pre-Operative Diagnosis Left iliac vein thrombosis Post-Operative Diagnosis same Procedure(s) Performed Insertion of Vena Cava Filter, Right Jugular Approach, Ultrasound Localization of Right Internal Jugular Vein, Fluoroscopy for Positioning Left Lower Extremity Venagram, Insertion of Infusion Catheter for Thrombolysis, Thrombolytic Therapy, Moderate Concious Sedation [address] Roldan [employer] Supervisor Surgeon(s) none Estimated Blood Loss 0 Findings complete occlusion left common iliac vein Specimens none Anesthesia Local with moderate conscious sedation Complication(s) None Disposition Surgical ICU
[2016-12-11 15:06] LABS: BASO % 0.6 %; BASO ABS # 0.02 K/uL (0-0.2); HEMATOCRIT 35.5 % (37-47); LYMPH % 35.7 %; LYMPH ABS # 1.25 K/uL (1.2-3.4); MEAN CELL VOLUME 96.2 fL (80-100); MEAN CORPUSCULAR HEMOGLOBIN 32.2 pg (25-34); MEAN PLATELET VOLUME 10.8 fL (7.4-10.4); MONO % 10.3 %; NEUT % 49.4 %; PLATELET COUNT 154 K/uL (130-400); RED BLOOD COUNT 3.69 M/uL (4.2-5.4)
[2016-12-11 15:20] LABS: COMPLETE YES; MEAN CORPUSCULAR HGB CONC 33.5 g/dl (32-36)
[2016-12-11 15:40] LABS: PARTIAL THROMBOPLASTIN RATIO 2.7
--- NOTE | 2016-12-11 15:45 | Family Medicine Progress Note ---
Progress Note Date of Service Dec 11, 2016. Subjective Pt evaluation today including: conversation w/ patient, conversation w/ family (daughter in room), physical exam, chart review, lab review, review of studies, review of inpatient medication list Pain: 0 PO Intake: NPO for vascular surgery Voiding: no voiding problems, no incontinence No acute issues overnight. Feels her leg swelling is improving. Awaiting vascular intervention around 1pm. Mild tension type headache. All Other Systems: Reviewed and Negative Medications Current Inpatient Medications Medications (Trade) Dose Ordered Sig/Clare Route Start Time Stop Time Status Last Admin Dose Admin Ioversol (Optiray 320) 116 ml UD PRN IV 12/08/16 20:00 12/12/16 19:59 Acetaminophen (Tylenol Tab) 650 mg Q4H PRN PO 12/08/16 22:00 01/07/17 21:59 Al Hydrox/Mg Hydrox/Simethicone (Maalox Max Susp) 15 ml Q4H PRN PO 12/08/16 22:00 01/07/17 21:59 Magnesium Hydroxide (Milk Of Magnesia Susp) 30 ml Q12H PRN PO 12/08/16 22:00 01/07/17 21:59 Zolpidem Tartrate (Ambien Tab) 5 mg HSZ PRN PO 12/08/16 22:00 01/07/17 21:59 12/10/16 23:56 5 MG Ondansetron HCl (Zofran Inj) 4 mg Q6H PRN IV 12/08/16 22:00 01/07/17 21:59 Polyethylene (Miralax Powder Packet) 17 gm DAILY PRN PO 12/08/16 22:00 01/07/17 21:59 Oxycodone/ Acetaminophen (Percocet 5-325mg Tab) 1 tab Q4H PRN PO 12/08/16 22:00 12/22/16 21:59 Morphine Sulfate (MoRPHine SULFATE INJ) 4 mg Q2H PRN IV 12/11/16 14:30 12/25/16 14:29 UNV Ondansetron HCl 4 mg 4 mg Q6H PRN IV 12/11/16 14:30 01/10/17 14:29 UNV Alteplase, Recombinant / Sodium Chloride 250 ml @ 0 mls/hr Q0M ONCE IV 12/11/16 14:30 12/11/16 14:31 UNV Alteplase, Recombinant / Sodium Chloride 250 ml @ 0 mls/hr Q0M ONCE IV 12/11/16 14:30 12/11/16 14:31 UNV Heparin Sodium/ Dextrose (Heparin 25,000 Unit/500ml D5W) 500 ml @ 16 mls/min Q32M ONCE IV 12/11/16 14:30 12/11/16 15:01 UNV Objective Vital Signs Date Time Temp Pulse Resp B/P Pulse Ox O2 Delivery O2 Flow Rate FiO2 12/11/16 13:01 36.7 68 16 111/77 98 Room Air 12/11/16 08:00 Room Air 12/11/16 07:29 36.7 68 16 111/77 98 Room Air 12/11/16 00:37 36.6 67 20 146/75 98 Room Air 12/11/16 00:00 Room Air 12/10/16 16:00 96 Room Air Physical Exam General Appearance: WD/WN, no apparent distress Respiratory/Chest: lungs clear, normal breath sounds, no respiratory distress, no accessory muscle use Cardiovascular: regular rate, rhythm, no murmur Abdomen: normal bowel sounds, non tender, soft Extremities: no calf tenderness, + pedal edema (2+ at ankles, 1+ to knee), + swelling (left leg) Neurologic/Psychiatric: alert, oriented x 3 Skin: normal color (improved color in left leg from previous days) Laboratory Results 12/11/16 14:59 Red Blood Count 3.69, Mean Corpuscular Volume 96.2, Mean Corpuscular Hemoglobin 32.2, Mean Corpuscular Hemoglobin Concent 33.5, Mean Platelet Volume 10.8, Neutrophils (%) (Auto) 49.4, Lymphocytes (%) (Auto) 35.7, Monocytes (%) (Auto) 10.3, Eosinophils (%) (Auto) 4.0, Basophils (%) (Auto) 0.6, Neutrophils # (Auto ) 1.73, Lymphocytes # (Auto) 1.25, Monocytes # (Auto) 0.36, Eosinophils # (Auto ) 0.14, Basophils # (Auto) 0.02 12/10/16 17:17 Test 12/10/16 17:17 12/11/16 14:59 Anion Gap 8.0 mmol/L (3-11) Est Creatinine Clear Calc Drug Dose 94.5 ml/min Estimated GFR () 103.1 Estimated GFR (Non- 88.9 BUN/Creatinine Ratio 12.2 (10-20) Calcium Level 9.2 mg/dl (8.5-10.1) White Blood Count 3.50 K/uL (4.8-10.8) Red Blood Count 3.69 M/uL (4.2-5.4) Hemoglobin 11.9 g/dL (12.0-16.0) Hematocrit 35.5 % (37-47) Mean Corpuscular Volume 96.2 fL (80-100) Mean Corpuscular Hemoglobin 32.2 pg (25-34) Mean Corpuscular Hemoglobin Concent 33.5 g/dl (32-36) Platelet Count 154 K/uL (130-400) Mean Platelet Volume 10.8 fL (7.4-10.4) Neutrophils (%) (Auto) 49.4 % Lymphocytes (%) (Auto) 35.7 % Monocytes (%) (Auto) 10.3 % Eosinophils (%) (Auto) 4.0 % Basophils (%) (Auto) 0.6 % Neutrophils # (Auto) 1.73 K/uL (1.4-6.5) Lymphocytes # (Auto) 1.25 K/uL (1.2-3.4) Monocytes # (Auto) 0.36 K/uL (0.11-0.59) Eosinophils # (Auto) 0.14 K/uL (0-0.5) Basophils # (Auto) 0.02 K/uL (0-0.2) RDW Standard Deviation 46.1 fL (36.4-46.3) RDW Coefficient of Variation 13.2 % (11.5-14.5) Immature Granulocyte % (Auto) 0.0 % Immature Granulocyte # (Auto) 0.00 K/uL (0.00-0.02) Assessment and Plan 56 year old with no significant PMHx present with unilateral leg swelling and extensive occlusive left pelvic, iliac and femoral DVT on CT. Provoked DVT from tibia fracture with completed occlusion of left common iliac vein - Appreciate vascular surgery management - patient for intravascular thrombolysis later today - Continue IV heparin - NPO Anemia - stable, suspect some dilutional, monitor given on IV heparin Tension headache - IV Tylenol, one dose as currently NPO for vascular surgery Code - Full Disposition - awaiting vascular intervention Resident Physician Supervision Note: I interviewed and examined the patient. Discussed with Dr. Duong and agree with findings and plan as documented in the note. Any exceptions or clarifications are listed here: None Documented By: Bill Sherman seen post vascular procedure feeling good, no significant pain ros otherwise negative except for as above vitlas noted nad breathing unlabored foot / leg similar to yesterday and certainly no eccymosis distally n/v intact extensive LLE and pelvic DVT - heparin, vascular procedures. stable. otherwise as above Resident Tracking Resident Involvement: Resident Care Provided Care Provided: Adult Hospital Medicine
[2016-12-11] MEDS ORDERED: ALTEPLASE, RECOMBINANT 24 MG in SODIUM CHLORIDE 0.9% 250ML 216 ML IV ONE ×2 (16:15)
[2016-12-11] MEDS: HEPARIN 25,000 UNIT/500ML D5W 500 ML IV SCH (16:23)
[2016-12-11] MEDS: MoRPHine SULFATE 2 MG/ML CARP IV PRN ×3 (16:38→20:39)
[2016-12-11] MEDS: MoRPHine SULFATE 4 MG/ML 1 ML CARP\\VIAL IV PRN ×3 (19:25→23:37)
--- NOTE | 2016-12-11 19:58 | CRITICAL CARE CONSULTATION ---
DATE OF CONSULTATION: 12/11/2016 CHIEF COMPLAINT: Left groin pain and back pain. HISTORY OF PRESENT ILLNESS: The patient is a 56-year-old woman without significant past medical history who presented to the Emergency Department on December 08 complaining of an edematous and discolored left leg. Approximately 4 weeks earlier, she lost her balance going down some steps and fractured her distal left fibula. She was seen in the Emergency Department on November 08 and was placed in a temporary cast and then went to the fracture clinic in [facility]. She has been using air boot since that time. In the Emergency Department, she noted that she had some pain in the back of her leg and was stretching that leg when it became discolored. She underwent lower extremity Doppler which showed an extensive left nonocclusive DVT of the peroneal vein. She also had a CT venogram of the pelvis showing extensive DVT in the left pelvic veins from the iliac bifurcation. She was placed on intravenous heparin and admitted to the hospital. Dr. 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 She also remains on a heparin infusion. There were no reported intraoperative complications and she presented to the intensive care unit postop, for further monitoring. I have been touching base with her nurse throughout the afternoon. This evening she has developed some back pain as well as left groin pain. She has had 2 mg of morphine and rates her pain an 8/10. She reports back pain prior to the procedure today, but feels like this is worse than it had been. She also has some mild lower abdominal pain. She denies shortness of breath. PAST MEDICAL AND SURGICAL HISTORY: She denies hypertension, diabetes and any surgeries. ALLERGIES: PENICILLIN WHICH CAUSED HIVES. SOCIAL HISTORY: She has history of smoking half a pack of cigarettes per day and quit in early 2016. She drinks several alcoholic drinks per week. She has 2 daughters at the bedside. She is unemployed. FAMILY HISTORY: Negative for clotting or bleeding disorders. REVIEW OF SYSTEMS: A 12-point review of systems was obtained and is negative other than the pelvic and back pain. She denies long periods of immobility surrounding her fibula fracture but was not moving around nearly as much as she normal would. OUTPATIENT MEDICATIONS: Ibuprofen and [place] p.r.n. PHYSICAL EXAMINATION: VITAL SIGNS: Temperature 36.8, heart rate 68, respiratory rate 16, blood pressure 121/85, oxygen saturation 98% on room air. HEENT: Pupils are equally round and reactive to light. NECK: Has no jugular venous distention. There is a 2 x 2 with an Op-Site covering it and it is clean, dry and intact. LUNGS: Clear to auscultation bilaterally. No rales, rhonchi or wheezes. HEART: Regular rate and rhythm. ABDOMEN: Mildly distended, soft, nontender. EXTREMITIES: Warm. The right leg is much larger than the left. There is a bulky dressing over the left groin and I do not feel any hematoma. There is no ecchymosis. Dorsalis pedis pulses are 1+ bilaterally. There are no skin changes. LABORATORY DATA: White blood cell count 3.5, hemoglobin 11.9, hematocrit 35.5, platelets 154. Sodium 143, potassium 3.7, chloride 109, CO2 26, BUN 9, creatinine 0.76. PTT 69.6. IMPRESSION: 1. Extensive deep vein thrombosis of the left pelvic veins from the iliac bifurcation, left calf/perineal deep vein thrombosis, now status post catheter-directed TPA, which is ongoing. 2. Status post inferior vena cava filter. 3. Back and groin pain. Blood counts are ordered for 8:30 tonight. She is getting morphine for this pain. 4. Distal left fibular fracture. RECOMMENDATIONS: 1. Check stat H\T\H. The patient's nurse was just on the phone with Dr. Roldan to update him. 2. Escalate morphine dose and frequency. 3. Continue to monitor her neurovascular status of the left leg. 4. Watch for any other signs of bleeding and also skin changes over the back and left lower extremity. Thank you for asking me to see this patient. Please call me with any questions or concerns. VIANEY
[2016-12-11 20:36] LABS: BASO % 0.4 %; BASO ABS # 0.02 K/uL (0-0.2); COMPLETE YES; EOS % 3.9 %; HEMATOCRIT 35.7 % (37-47); IG% 0.2 %; LYMPH % 31.4 %; LYMPH ABS # 1.61 K/uL (1.2-3.4); MEAN CORPUSCULAR HEMOGLOBIN 31.7 pg (25-34); MEAN CORPUSCULAR HGB CONC 33.1 g/dl (32-36); MEAN PLATELET VOLUME 11.3 fL (7.4-10.4); MONO % 9.9 %; NEUT % 54.2 %; PLATELET COUNT 163 K/uL (130-400); RED BLOOD COUNT 3.72 M/uL (4.2-5.4); WHITE BLOOD COUNT 5.13 K/uL (4.8-10.8)
[2016-12-11 21:24] LABS: PARTIAL THROMBOPLASTIN RATIO 1.4
[2016-12-12] VITALS (32 sets, daily range): BP systolic 68–115; BP diastolic 41–76; PULSE 61–82; TEMP 36.5–37.3; O2SAT 92–100
[2016-12-12] MEDS ORDERED: NURSING VERBAL MED ORDER ONE ×5 (00:45→15:15)
[2016-12-12] MEDS ORDERED: SODIUM CHLORIDE 0.9% 500ML 500 ML IV STA ×2 (00:52→04:20)
[2016-12-12] MEDS: MoRPHine SULFATE 4 MG/ML 1 ML CARP\\VIAL IV PRN ×4 (01:01→15:59)
[2016-12-12 02:38] LABS: BASO % 0.4 %; BASO ABS # 0.02 K/uL (0-0.2); COMPLETE YES; EOS % 3.7 %; HEMATOCRIT 33.5 % (37-47); LYMPH % 25.9 %; MEAN CORPUSCULAR HEMOGLOBIN 31.2 pg (25-34); MEAN CORPUSCULAR HGB CONC 32.5 g/dl (32-36); MEAN PLATELET VOLUME 10.8 fL (7.4-10.4); MONO % 12.2 %; NEUT % 57.8 %; PLATELET COUNT 140 K/uL (130-400); RED BLOOD COUNT 3.49 M/uL (4.2-5.4); WHITE BLOOD COUNT 5.41 K/uL (4.8-10.8)
[2016-12-12 03:03] LABS: PARTIAL THROMBOPLASTIN RATIO 1.8
[2016-12-12] MEDS ORDERED: ALTEPLASE, RECOMBINANT 12 MG in SODIUM CHLORIDE 0.9% 250ML 228 ML IV ONE ×2 (04:30)
[2016-12-12] MEDS ORDERED: NURSING DECISION MEDICATION ORDER SCH (04:30)
[2016-12-12] MEDS ORDERED: NURSING VERBAL MED ORDER STA ×2 (08:14→09:33)
[2016-12-12] MEDS ORDERED: SODIUM CHLORIDE 0.9% 1000ML 500 ML IV SCH (08:30)
[2016-12-12] MEDS: HEPARIN 25,000 UNIT/500ML D5W 500 ML IV SCH (08:43)
[2016-12-12] MEDS ORDERED: ALTEPLASE IV SCH ×2 (09:00)
[2016-12-12] MEDS ORDERED: SODIUM CHLORIDE 0.9% IV SCH ×2 (09:00)
[2016-12-12] MEDS ORDERED: RECOMBINANT IV SCH ×2 (09:00)
[2016-12-12 09:25] LABS: HEMATOCRIT 23.7 % (37-47); MEAN CELL VOLUME 97.1 fL (80-100); MEAN CORPUSCULAR HGB CONC 32.9 g/dl (32-36); MEAN PLATELET VOLUME 10.7 fL (7.4-10.4); PLATELET COUNT 100 K/uL (130-400); RED BLOOD COUNT 2.44 M/uL (4.2-5.4)
[2016-12-12 09:34] LABS: PARTIAL THROMBOPLASTIN RATIO 2.2
[2016-12-12 09:35] LABS: COMPLETE YES; EOS % 2.9 %; IG% 0.3 %; LYMPH % 24.9 %; LYMPH ABS # 0.87 K/uL (1.2-3.4); MONO % 9.4 %; NEUT % 62.5 %
[2016-12-12] MEDS ORDERED: OPTIRAY 320 IV PRN (09:45)
--- NOTE | 2016-12-12 10:11 | DIAGNOSTIC IMAGING REPORT ---
CT SCAN OF THE ABDOMEN AND PELVIS WITHOUT CONTRAST CLINICAL HISTORY: Back and pelvic pain. Possible retroperitoneal hemorrhage. COMPARISON STUDY: 12/08/2016 TECHNIQUE: CT scan of the abdomen and pelvis was performed from the lung bases to the proximal femurs. Images are reviewed in the axial, sagittal, and coronal planes. IV contrast was not administered for this examination. CT DOSE: 431.22 mGy.cm FINDINGS: Lower chest: There are small bilateral pleural effusions with bibasal airspace opacities, likely atelectatic. There are bilateral breast implants. Liver: The unenhanced liver is normal in size, contour, and attenuation. There is no intrahepatic biliary ductal dilatation. Gallbladder: There is contrast in the gallbladder, likely secondary to vicarious excretion. Spleen: The spleen is mildly elongated measuring 12.7 cm. Pancreas: Unremarkable. Adrenal glands: Unremarkable. Kidneys: No renal, ureteral, or bladder calculi are visualized. Bowel: There are no transition zones indicate bowel obstruction. There is no evidence of acute appendicitis. There is no evidence of acute diverticulitis. Peritoneum: There is no free air. There is no significant ascites. There is infiltration of the perivesical fat, and fat in the region the left pelvic sidewall. This likely represents a small amount of hemorrhage. A large retroperitoneal hemorrhage is not visualized. Vasculature: There is an indwelling IVC filter. There is a left femoral venous catheter which extends to the level of the IVC filter. There is infiltration of the fat surrounding the femoral vessels consistent with a small amount of perivascular hemorrhage. Adenopathy: None. Pelvic viscera: There is indwelling Ying catheter. There is mild bladder wall thickening. There is air within the bladder likely iatrogenic. There is infiltration the perivesical fat. There is infiltration of the presacral fat area Skeletal structures: No destructive osseous lesions are seen. IMPRESSION: 1. Interval placement of an IVC filter and left femoral venous catheter 2. Infiltration of the fat surrounding the left iliac vessels. There is infiltration the fat surrounding the bladder. There is also infiltration of the fat within the presacral region. The findings likely represent a small amount of hemorrhage. A large retroperitoneal hemorrhage is not identified. 3. No evidence of bowel obstruction. No evidence of free air 4. Small bilateral pleural effusions and bibasilar atelectasis Electronically signed by: Lawrence Nicole M.D. 12/12/2016 10:09 AM Dictated Date/Time: 12/12/2016 10:03 AM
[2016-12-12 10:45] LABS: HEMATOCRIT 32.3 % (37-47)
[2016-12-12] MEDS ORDERED: HEPARIN 25,000 UNIT/500ML D5W 500 ML IV PRN (11:00)
--- NOTE | 2016-12-12 11:52 | CRITICAL CARE PROGRESS NOTE ---
DATE: 12/12/2016 DATE: 12/12/2016. SUBJECTIVE: The patient's care was discussed in detail on multidisciplinary rounds today. She continues to complain of low back pain more so on the left as well as left groin and pelvic pain. Her hemoglobin this morning was 7.[address] scan of the abdomen and pelvis which showed infiltration around the fat surrounding the left iliac vessels and the bladder. Also, infiltration of fat within the presacral region, most likely representing a small amount of hemorrhage. There was no large retroperitoneal hemorrhage identified. Her TPA and heparin were stopped prior to the CT scan and heparin is being resumed. She feels a little bit better compared to yesterday, but cannot get comfortable and is having difficulty lying flat on her back. She denies hemoptysis. She has not had any vomiting and her pain is tolerable with morphine. PHYSICAL EXAMINATION: VITAL SIGNS: Maximum temperature 36.9, heart rate 60s-70s, respiratory rate 16-18, blood pressure 86-103/60s, oxygen saturation 94% on 2 liters nasal cannula. 24-hour fluid balance is -1.2 liters. She did have a bowel movement over the past day. GENERAL: She is awake and alert. She has dried blood on her top lip over a cold sore. NECK: Shows a pressure dressing on the right side without any bleeding. LUNGS: Have bibasilar rales, no rhonchi or wheezes. HEART: Regular rate and rhythm. ABDOMEN: Soft, nondistended, mild left lower quadrant tenderness, no rebound or guarding. Bowel sounds active. EXTREMITIES: Show bulky dressing in the left groin with some blood on the dressing but none oozing beyond the dressing. Both legs are warm. The left leg is significantly larger than the right. Dorsalis pedis pulses are 1+ bilaterally. LABORATORY DATA: Follow-up hemoglobin 10.7, hemoglobin last night 11.8, sodium 143, potassium 3.7, chloride 109, CO2 26, BUN 9, creatinine 0.76. IMPRESSION: 1. Extensive deep venous thrombosis of the left pelvic veins from the iliac bifurcation, status post catheter-directed tissue plasminogen activator. 2. Possible small amount of bleeding as evidenced by some infiltration of the fat around the bladder and the iliac vessels. 3. Mild anemia, possibly secondary to above. 4. Recent distal left fibula fracture. RECOMMENDATIONS/PLAN: 1. Continue morphine for pain. 2. Await further plans for this afternoon. She is scheduled for a repeat venogram and procedure with Dr. Roldan. 3. Suggest incentive spirometry. 4. Continue neurovascular checks and serial blood counts. Please call me with any questions or concerns. VIANEY
[2016-12-12] MEDS ORDERED: SODIUM CHLORIDE 0.9% 1000ML 1,000 ML IV SCH ×2 (12:00→14:57)
[2016-12-12] MEDS ORDERED: CLINDAMYCIN 600 MG/54 ML D5W IV ONE (13:30)
[2016-12-12] MEDS ORDERED: CLINDAMYCIN IV 600 MG in DEXTROSE 5% ADD-VANTAGE 50ML 50 ML IV ONE (13:30)
--- NOTE | 2016-12-12 13:40 | Progress Note ---
Progress Note Date of Service Dec 12, 2016. Progress Note Patient for recheck of TPA with possible intervention today. I have discussed the risks options and benefits of the procedure with the patient. The patient understands the risks options and benefits and agrees to the procedure. I have examined the patient, reviewed the History & Physical and in the interval since the performance of the History & Physical I have noted the following changes of clinical significance: No changes noted
--- NOTE | 2016-12-12 13:40 | Procedure Note ---
Pre-Mod Sedation Assessment General Date of Moderate Sedation: Dec 12, 2016. Vital Signs: Vital Signs Past 12 Hours Date Time Temp Pulse Resp B/P Pulse Ox O2 Delivery O2 Flow Rate FiO2 12/12/16 13:00 75 16 91/52 95 Room Air 2.0 12/12/16 12:00 Nasal Cannula 2.0 12/12/16 12:00 69 16 87/52 97 Room Air 2.0 12/12/16 11:00 73 16 101/64 98 Room Air 2.0 12/12/16 10:30 71 16 102/62 95 Room Air 2.0 12/12/16 09:00 78 16 96/60 98 Room Air 2.0 12/12/16 08:00 Nasal Cannula 2.0 12/12/16 08:00 67 16 68/41 100 Room Air 2.0 12/12/16 07:00 72 16 87/48 96 Room Air 2.0 12/12/16 06:00 74 16 97/61 98 Nasal Cannula 2.0 12/12/16 05:00 67 16 103/64 98 Nasal Cannula 2.0 12/12/16 04:04 36.9 66 16 99/60 98 Nasal Cannula 2.0 12/12/16 04:00 94 Nasal Cannula 2.0 12/12/16 04:00 36.9 66 16 86/50 98 Nasal Cannula 2.0 12/12/16 03:00 36.9 72 16 105/64 100 Nasal Cannula 2.0 12/12/16 02:02 80 16 97/59 98 Nasal Cannula 2.0 Pre-Sedation Airway Assessment Oral Cavity: WNL Short Thick Neck: No Hx of Sleep Apnea: No Smoking Status: Former Smoker Mallampati Classification: Class I ASA Classification: Class II Notes The planned sedation has been discussed with the patient and consent obtained. I have identified the patient, determined the appropriateness of sedation and have assessed the patient immediately prior to the procedure. All medicine(s) and interventions are by my order.
[2016-12-12] MEDS ORDERED: FENTANYL CITRATE INJ 50 MCG/1 ML 2 ML VIAL IV ONE ×4 (14:18→14:52)
[2016-12-12] MEDS ORDERED: FENTANYL CITRATE INJ 50 MCG/1 ML 2 ML VIAL ONE ×2 (14:18→14:56)
[2016-12-12] MEDS ORDERED: MIDAZOLAM HCL 1 MG/ML 2ML VIAL ONE ×2 (14:18→14:56)
[2016-12-12] MEDS ORDERED: MIDAZOLAM HCL 1 MG/ML 2ML VIAL IV ONE ×3 (14:18→14:52)
[2016-12-12] MEDS ORDERED: CLOPIDOGREL BISULFATE 75 MG TAB PO SCH (15:00)
[2016-12-12] MEDS ORDERED: IODIXANOL (VISIPAQUE) 270 MG/ML 150ML IV ONE (15:08)
--- NOTE | 2016-12-12 15:11 | Procedure Note ---
Post-Moderate Sedation Plan General Date of Moderate Sedation Dec 12, 2016. Vital Signs: Vital Signs Past 12 Hours Date Time Temp Pulse Resp B/P Pulse Ox O2 Delivery O2 Flow Rate FiO2 12/12/16 14:00 71 16 108/61 98 Room Air 2.0 12/12/16 13:00 75 16 91/52 95 Room Air 2.0 12/12/16 12:00 Nasal Cannula 2.0 12/12/16 12:00 69 16 87/52 97 Room Air 2.0 12/12/16 11:00 73 16 101/64 98 Room Air 2.0 12/12/16 10:30 71 16 102/62 95 Room Air 2.0 12/12/16 09:00 78 16 96/60 98 Room Air 2.0 12/12/16 08:00 Nasal Cannula 2.0 12/12/16 08:00 67 16 68/41 100 Room Air 2.0 12/12/16 07:00 72 16 87/48 96 Room Air 2.0 12/12/16 06:00 74 16 97/61 98 Nasal Cannula 2.0 12/12/16 05:00 67 16 103/64 98 Nasal Cannula 2.0 12/12/16 04:04 36.9 66 16 99/60 98 Nasal Cannula 2.0 12/12/16 04:00 94 Nasal Cannula 2.0 12/12/16 04:00 36.9 66 16 86/50 98 Nasal Cannula 2.0 Review - Discharge Plan Post Moderate Sedation Plan: On clinical assessment, the patient appears to have tolerated the conscious sedation without complications. Patient is recovering as anticipated. Patient will continue to be monitored by nursing and may be discharged when conscious sedation discharge criteria are met.
--- NOTE | 2016-12-12 15:13 | [facility] Post Operative Brief Note ---
Immediate Operative Summary Operative Date Dec 12, 2016. 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
[2016-12-12] MEDS ORDERED: RIVAROXABAN 20 MG TAB PO SCH (17:00)
[2016-12-12] MEDS: ACETAMINOPHEN 325 MG TAB PO PRN ×2 (17:16→22:31)
--- NOTE | 2016-12-12 19:24 | Family Medicine Progress Note ---
Progress Note Date of Service Dec 12, 2016. Subjective Pt evaluation today including: conversation w/ patient, physical exam, chart review, lab review, review of studies, review of inpatient medication list Voiding: no incontinence, thomas catheter in place Increase in MSK back pain and headache when seen in the morning. This improved with pressure applied by Dr Sherman. Swelling improving in LLE. Denies any pain or numbness. All Other Systems: Reviewed and Negative Medications Current Inpatient Medications Medications (Trade) Dose Ordered Sig/Clare Route Start Time Stop Time Status Last Admin Dose Admin Ioversol (Optiray 320) 116 ml UD PRN IV 12/08/16 20:00 12/12/16 19:59 Acetaminophen (Tylenol Tab) 650 mg Q4H PRN PO 12/08/16 22:00 01/07/17 21:59 12/12/16 17:16 650 MG Al Hydrox/Mg Hydrox/Simethicone (Maalox Max Susp) 15 ml Q4H PRN PO 12/08/16 22:00 01/07/17 21:59 Magnesium Hydroxide (Milk Of Magnesia Susp) 30 ml Q12H PRN PO 12/08/16 22:00 01/07/17 21:59 Zolpidem Tartrate (Ambien Tab) 5 mg HSZ PRN PO 12/08/16 22:00 01/07/17 21:59 12/10/16 23:56 5 MG Polyethylene (Miralax Powder Packet) 17 gm DAILY PRN PO 12/08/16 22:00 01/07/17 21:59 Oxycodone/ Acetaminophen (Percocet 5-325mg Tab) 1 tab Q4H PRN PO 12/08/16 22:00 12/22/16 21:59 Morphine Sulfate (MoRPHine SULFATE INJ) 3 MG FOR PAIN RATING... Q2H PRN IV 12/11/16 14:30 12/25/16 14:29 12/12/16 15:59 4 MG Ondansetron HCl (Zofran Inj) 4 mg Q6H PRN IV 12/11/16 14:30 01/10/17 14:29 12/12/16 08:18 4 MG Morphine Sulfate (MoRPHine SULFATE INJ) 1 MG FOR PAIN RATING... Q2H PRN IV 12/11/16 16:30 12/25/16 16:29 12/11/16 20:39 2 MG Ioversol 111 ml 111 ml UD PRN IV 12/12/16 09:45 12/16/16 09:44 Sodium Chloride (Nss 1000ml) 1,000 ml @ 100 mls/hr Q10H IV 12/12/16 14:57 12/12/16 22:00 12/12/16 14:57 100 MLS/HR Rivaroxaban (Xarelto Tab) 20 mg QDD PO 12/13/16 17:45 01/12/17 17:44 Objective Vital Signs Date Time Temp Pulse Resp B/P Pulse Ox O2 Delivery O2 Flow Rate FiO2 12/12/16 17:30 37.3 80 20 115/76 95 Room Air 12/12/16 17:23 36.6 78 20 98 2.0 12/12/16 17:01 36.6 78 108/69 98 12/12/16 17:00 82 98 12/12/16 16:45 67 92/51 98 12/12/16 16:30 36.7 69 90/50 98 12/12/16 16:15 65 87/52 98 12/12/16 16:00 68 102/58 99 12/12/16 15:45 79 107/64 99 12/12/16 15:30 75 106/63 98 12/12/16 15:30 Room Air 12/12/16 15:30 36.7 65 20 102/62 98 Room Air 2.0 12/12/16 14:00 71 16 108/61 98 Room Air 2.0 12/12/16 13:00 75 16 91/52 95 Room Air 2.0 12/12/16 12:00 Nasal Cannula 2.0 12/12/16 12:00 69 16 87/52 97 Room Air 2.0 12/12/16 11:00 73 16 101/64 98 Room Air 2.0 12/12/16 10:30 71 16 102/62 95 Room Air 2.0 12/12/16 09:00 78 16 96/60 98 Room Air 2.0 12/12/16 08:00 Nasal Cannula 2.0 12/12/16 08:00 67 16 68/41 100 Room Air 2.0 12/12/16 07:00 72 16 87/48 96 Room Air 2.0 12/12/16 06:00 74 16 97/61 98 Nasal Cannula 2.0 12/12/16 05:00 67 16 103/64 98 Nasal Cannula 2.0 12/12/16 04:04 36.9 66 16 99/60 98 Nasal Cannula 2.0 12/12/16 04:00 94 Nasal Cannula 2.0 12/12/16 04:00 36.9 66 16 86/50 98 Nasal Cannula 2.0 12/12/16 03:00 36.9 72 16 105/64 100 Nasal Cannula 2.0 12/12/16 02:02 80 16 97/59 98 Nasal Cannula 2.0 12/12/16 01:00 67 16 94/57 98 Nasal Cannula 2.0 12/12/16 00:30 69 18 96/58 98 Nasal Cannula 2.0 12/12/16 00:05 36.8 63 18 97/60 98 Nasal Cannula 2.0 12/12/16 00:01 61 99 12/11/16 23:59 94 Nasal Cannula 2.0 12/11/16 23:03 88 16 101/65 98 Nasal Cannula 3.0 12/11/16 22:00 66 110/67 98 Nasal Cannula 2.0 12/11/16 21:00 79 16 117/72 93 Room Air 12/11/16 20:00 67 16 119/75 94 Room Air 12/11/16 20:00 94 Room Air 12/11/16 19:10 36.7 72 114/72 96 Room Air Physical Exam General Appearance: WD/WN, + mild distress (from back and headache pain) Eyes: normal inspection (pupils equal), EOMI Respiratory/Chest: lungs clear, normal breath sounds, no respiratory distress, no accessory muscle use Cardiovascular: regular rate, rhythm, no murmur Abdomen: normal bowel sounds, non tender, soft Extremities: no calf tenderness, + pedal edema (2+ ankle 1+ up to knee, circumference improved) Neurologic/Psychiatric: no motor/sensory deficits (no LLE numbness and full ROM ankle movements intact), alert, oriented x 3 Skin: normal color, warm/dry, no rash Laboratory Results 12/12/16 08:39 Red Blood Count 2.44, Mean Corpuscular Volume 97.1, Mean Corpuscular Hemoglobin 32.0, Mean Corpuscular Hemoglobin Concent 32.9, Mean Platelet Volume 10.7, Neutrophils (%) (Auto) 62.5, Lymphocytes (%) (Auto) 24.9, Monocytes (%) (Auto) 9.4, Eosinophils (%) (Auto) 2.9, Basophils (%) (Auto) 0.0, Neutrophils # (Auto) 2.19, Lymphocytes # (Auto) 0.87, Monocytes # (Auto) 0.33, Eosinophils # (Auto) 0.10, Basophils # (Auto) 0.00 12/12/16 10:30 Test 12/12/16 08:39 White Blood Count 3.50 K/uL (4.8-10.8) Red Blood Count 2.44 M/uL (4.2-5.4) Hemoglobin 7.8 g/dL (12.0-16.0) Hematocrit 23.7 % (37-47) Mean Corpuscular Volume 97.1 fL (80-100) Mean Corpuscular Hemoglobin 32.0 pg (25-34) Mean Corpuscular Hemoglobin Concent 32.9 g/dl (32-36) Platelet Count 100 K/uL (130-400) Mean Platelet Volume 10.7 fL (7.4-10.4) Neutrophils (%) (Auto) 62.5 % Lymphocytes (%) (Auto) 24.9 % Monocytes (%) (Auto) 9.4 % Eosinophils (%) (Auto) 2.9 % Basophils (%) (Auto) 0.0 % Neutrophils # (Auto) 2.19 K/uL (1.4-6.5) Lymphocytes # (Auto) 0.87 K/uL (1.2-3.4) Monocytes # (Auto) 0.33 K/uL (0.11-0.59) Eosinophils # (Auto) 0.10 K/uL (0-0.5) Basophils # (Auto) 0.00 K/uL (0-0.2) RDW Standard Deviation 48.4 fL (36.4-46.3) RDW Coefficient of Variation 13.3 % (11.5-14.5) Immature Granulocyte % (Auto) 0.3 % Immature Granulocyte # (Auto) 0.01 K/uL (0.00-0.02) Red Blood Cell Morphology Unremarkable Activated Partial Thromboplast Time 57.4 SECONDS (21.0-31.0) Partial Thromboplastin Ratio 2.2 Fibrinogen 122 mg/dl (184-400) Assessment and Plan 56 year old with no significant PMHx present with unilateral leg swelling and extensive occlusive left pelvic, iliac and femoral DVT on CT. 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 No retroperitoneal hematoma on CT, continue to monitor Tension headache and MSK back pain - acetaminophen and morphine PRN Code - Full Disposition - if stable tomorrow consider discharge home. Resident Physician Supervision Note: I interviewed and examined the patient. Discussed with Dr. Duong and agree with findings and plan as documented in the note. Any exceptions or clarifications are listed here: None Documented By: Bill Sherman headache and back pain no neuro deficits ros otherwise engative except for as above vitals noted, fatigued appearing leg edema about the same maybe slightly improved ost/msk - R>L Lspine paraspinals high tone/tender/decreased ROM - direct myofascial - imrpoved. R>L suboccipitals high tone/tender/decreased ROM - inhibitory pressure/counterstrain - improved. pt tolerated well and headache/ back pain better a/p DVT - as above, ongoing anticoagulation and vascular procedures headache/back pain, Cspine and Lspine somatic dysfunction - OMT as above improving Resident Tracking Resident Involvement: Resident Care Provided Care Provided: Adult Hospital Medicine
[2016-12-13] VITALS (7 sets, daily range): BP systolic 90–127; BP diastolic 58–78; PULSE 80–85; TEMP 36.6–37.9; O2SAT 92–94
[2016-12-13] MEDS: ACETAMINOPHEN 325 MG TAB PO PRN ×3 (04:00→14:34)
[2016-12-13] MEDS ORDERED: SODIUM CHLORIDE 0.9% 500ML 500 ML IV STA (08:05)
[2016-12-13 09:10] LABS: HEMATOCRIT 30.7 % (37-47); MEAN CELL VOLUME 95.9 fL (80-100); MEAN CORPUSCULAR HEMOGLOBIN 31.9 pg (25-34); MEAN CORPUSCULAR HGB CONC 33.2 g/dl (32-36); MEAN PLATELET VOLUME 11.2 fL (7.4-10.4); PLATELET COUNT 128 K/uL (130-400)
[2016-12-13 09:33] LABS: CALCIUM 8.5 mg/dl (8.5-10.1)
[2016-12-13 09:34] LABS: BUN/CREATININE RATIO 7.5 (10-20); CREATININE 0.79 mg/dl (0.60-1.20); POTASSIUM 3.9 mmol/L (3.5-5.1)
--- NOTE | 2016-12-13 12:39 | Discharge Instructions ---
Discharge Instructions Date of Service Dec 13, 2016. Admission Reason for Admission: DVT Discharge Discharge Diagnosis / Problem: (1) DVT (deep venous thrombosis) (2) May-Thurner syndrome VTE Date & Time Date of VTE Diagnosis: Dec 08, 2016 Time of VTE Diagnosis: 19:49 Discharge Goals Goal(s): Decrease discomfort, Improve function, Improve disease control Activity Recommendations Activity Limitations: resume your previous activity (as per tibia fracture plan ) . Instructions / Follow-Up Instructions / Follow-Up You were diagnosed with a Deep Vein Thrombosis treated with IV heparin, IVC filter, intravascular thrombolysis with stent placement and now will continue on low dose of aspirin and xarelto. Please follow up with Dr Hang Duong at 8:10am on Friday. You will be contacted regarding an appointment with vascular surgery in approximately 2 weeks. Medication Instructions: Your condition is typically treated with an anticoagulant. Anticoagulants will thin your blood to help prevent new clots. * You should take her medication exactly as directed. * Never skip a dose. * Never take a double dose. If you miss a dose, take it as soon as you remember. Call your Primary Care doctor if you experience any of the following: * Swelling or Pain in your leg * Sudden, continuous pain deep in a muscle * Pain that worsens when you are active or when you stand still for a long time * Chest Pain * Sudden Shortness of Breath * Rapid or pounding heart beat * Fainting * Dizziness * Cough with blood or bloody sputum * Sweating more than normal * Bruises * Heavy or uncontrolled bleeding * Blood in your urine, stool or vomit * Black or tarry stools Caring for Your Self at Home: * Avoid sitting, standing or lying down for long periods without moving your legs and feet * When traveling by car, stop to get out and move around at least once every 3 hours * On long airplane, train or bus rides, get up and move around when possible * If you can't get up, wiggle your toes and tighten your calves to keep your blood moving Follow Up: It is important for you to keep your follow up appointments with your medical provider. Current Hospital Diet Patient's current hospital diet: Regular Diet Discharge Diet Recommended Diet: Regular Diet Procedures Procedures Performed: IVD filter Recheck Venogram Percutaneous Angioplatsy of Left Common Iliac Vein Left Common Iliac VeinStent Status Post Thromboytics Moderate sedation [id number] Pending Studies Studies pending at discharge: no Medical Emergencies . Who to Call and When: Medical Emergencies: If at any time you feel your situation is an emergency, please call 911 immediately. . Non-Emergent Contact Non-Emergency issues call your: Primary Care Provider Contact Number: . . "Provider Documentation" section prepared by Hang Duong. . VTE Core Measure Inpt VTE Proph given/why not?: Other Anticoagulation
[2016-12-13] MEDS ORDERED: XRL20 PO (12:54)
[2016-12-13] MEDS ORDERED: ASPI81TA28 PO (12:54)
--- NOTE | 2016-12-13 14:03 | Progress Note ---
Progress Note Date of Service: Dec 13, 2016. Subjective 56 yo f s/p L iliac thrombectomy, seen in f/u today. Pt states LLE pain and edema significantly improved. Still has some hematoma R neck. Has dull frontal LUCAS, but believes this is d/t uncomfortable bed/pillow. Denies any new complaints. Problem List Medical Problems: (1) Fall Status: Acute (2) Fracture of distal end of left fibula Status: Acute (3) Thrombosis of left iliac vein Status: Acute Objective Vital Signs Vital Signs Past 12 Hours Date Time Temp Pulse Resp B/P Pulse Ox O2 Delivery O2 Flow Rate FiO2 12/13/16 13:31 36.6 83 16 94 Room Air 12/13/16 12:00 36.6 83 16 127/78 94 Room Air 12/13/16 11:16 80 107/71 12/13/16 07:50 Room Air 12/13/16 07:34 36.9 82 16 90/58 94 Room Air 12/13/16 05:05 36.6 12/13/16 03:56 37.5 12/13/16 03:46 37.9 85 16 97/63 92 Room Air Exam COSNT: A&O x4, NAD, healthy appearing female NECK: puncture with moderate local hematoma.soft, mild amt old blood on dressing. trachea midline EXT: LLE puncture C/D/I, minimal local ecchymosis. + local tenderness. thigh edema significantly improved. lower leg edema still present, but lesser degree Intake & Output 8-Hour Column 12/12/16 12/13/16 12/13/16 16:00 00:00 08:00 Intake Total 930 ml 600 ml Output Total 600 ml 1800 ml Balance 330 ml -1200 ml 24-Hour Column 12/13/16 08:00 Intake Total 1530 ml Output Total 2400 ml Balance -870 ml Laboratory and Microbiology Results Past 24 Hours Test 12/13/16 08:36 Range/Units White Blood Count 3.80 4.8-10.8 K/uL Red Blood Count 3.20 4.2-5.4 M/uL Hemoglobin 10.2 12.0-16.0 g/dL Hematocrit 30.7 37-47 % Mean Corpuscular Volume 95.9 80-100 fL Mean Corpuscular Hemoglobin 31.9 25-34 pg Mean Corpuscular Hemoglobin Concent 33.2 32-36 g/dl RDW Standard Deviation 45.7 36.4-46.3 fL RDW Coefficient of Variation 13.1 11.5-14.5 % Platelet Count 128 130-400 K/uL Mean Platelet Volume 11.2 7.4-10.4 fL Sodium Level 142 136-145 mmol/L Potassium Level 3.9 3.5-5.1 mmol/L Chloride Level 106 98-107 mmol/L Carbon Dioxide Level 29 21-32 mmol/L Anion Gap 7.0 3-11 mmol/L Blood Urea Nitrogen 6 7-18 mg/dl Creatinine 0.79 0.60-1.20 mg/dl Est Creatinine Clear Calc Drug Dose 99.3 ml/min Estimated GFR () 98.4 Estimated GFR (Non- 84.9 BUN/Creatinine Ratio 7.5 10-20 Random Glucose 98 70-99 mg/dl Calcium Level 8.5 8.5-10.1 mg/dl Microbiology Results 12/12/16 MRSA DNA Surveillance Screen - Final, Complete Specimen Negative for MRSA by DNA Probe ASSESSMENT and PLAN: s/p LLE iliac thrombectomy iliac DVT Pt doing well post op. Pt to use thigh high compression during day and elevate leg when sitting. May d/c from vascular standpoint. Will see in office in 2 weeks for reevaluation.
[2016-12-13] MEDS ORDERED: RIVAROXABAN 20 MG TAB PO SCH (17:45)
--- NOTE | 2016-12-25 10:41 | Discharge Summary ---
Discharge Summary Date of Service December 25, 2016. Discharge Summary Admission Date: Dec 08, 2016 at 21:53 Discharge Date: Dec 13, 2016 Discharge Disposition: Home Principal Diagnosis: Provoked DVT due to tibia fracture and concurrent May- Thurner syndrome Procedures: Immediate Operative Summary Operative Date Dec 11, 2016. Pre-Operative Diagnosis Left iliac vein thrombosis Post-Operative Diagnosis same Procedure(s) Performed Insertion of Vena Cava Filter, Right Jugular Approach, Ultrasound Localization of Right Internal Jugular Vein, Fluoroscopy for Positioning Left Lower Extremity Venagram, Insertion of Infusion Catheter for Thrombolysis, Thrombolytic Therapy, Moderate Concious Sedation [address] Roldan Smt Technician Surgeon(s) none Estimated Blood Loss 0 Findings complete occlusion left common iliac vein Specimens none Anesthesia Local with moderate conscious sedation Complication(s) None Disposition Surgical ICU <Electronically signed by Marcus Roldan M.D.> Signed: 12/11/16 1453 Immediate Operative Summary Operative Date Dec 12, 2016. Pre-Operative Diagnosis Left iliac vein occulsion Post-Operative Diagnosis May Thurner syndrome Procedure(s) Performed Recheck Venogram Percutaneous Angioplatsy of Left Common Iliac Vein Left Common Iliac VeinStent Status Post Thromboytics Moderate sedation [id number] Surgeon Jamar Smt Technician Surgeon(s) None Estimated Blood Loss 10 Findings compression of left common iliac vein, no residual stenosis Specimens None Complication(s) None Disposition Surgical ICU <Electronically signed by Marcus Roldan M.D.> Signed: 12/12/16 1513 Last Resulted CBC 12/13/16 08:36 Last Resulted BMP 12/13/16 08:36 [~ rep ct add3]] CT VENOGRAM OF THE PELVIS CLINICAL HISTORY: Cyanosis of the left leg. Left lower extremity deep venous thrombosis. Reported history of recent left leg fracture. COMPARISON STUDY: Ultrasound of the left lower extremity dated 12/08/2016. TECHNIQUE: CT venogram of the pelvis is performed from the pelvic inlet to the proximal femora following the IV administration of 116 cc of Optiray 320. Images reviewed in the axial, sagittal, and coronal planes. IV contrast was administered without complication. CT DOSE: 319.89 mGy.cm FINDINGS: The right iliac veins and the right common femoral vein opacify normally with IV contrast. There is extensive and occlusive appearing deep venous thrombosis identified throughout the left iliac venous system. This extends from the iliac bifurcation to the left common femoral artery, and involves both the left internal and external iliac veins. There is mild stranding around the left internal and external iliac veins. The iliac arteries are widely patent. The bladder, uterus, and adnexa are normal as visualized. The visualized bowel loops are normal in caliber. A normal appendix is identified. There is no pelvic sidewall or inguinal lymphadenopathy. There is a small fat-containing umbilical hernia. The bony pelvis an proximal femora are maintained. IMPRESSION: 1. Extensive deep venous thrombosis is identified involving the left pelvic veins. This extends from the iliac bifurcation into the left common femoral vein. 2. The deep veins in the right pelvis are patent. 3. The pelvic viscera is normal in appearance. Electronically signed by: Yemi Villatoro M.D. 12/08/2016 7:57 PM Dictated Date/Time: 12/08/2016 7:[address] SCAN OF THE ABDOMEN AND PELVIS WITHOUT CONTRAST CLINICAL HISTORY: Back and pelvic pain. Possible retroperitoneal hemorrhage. COMPARISON STUDY: 12/08/2016 TECHNIQUE: CT scan of the abdomen and pelvis was performed from the lung bases to the proximal femurs. Images are reviewed in the axial, sagittal, and coronal planes. IV contrast was not administered for this examination. CT DOSE: 431.22 mGy.cm FINDINGS: Lower chest: There are small bilateral pleural effusions with bibasal airspace opacities, likely atelectatic. There are bilateral breast implants. Liver: The unenhanced liver is normal in size, contour, and attenuation. There is no intrahepatic biliary ductal dilatation. Gallbladder: There is contrast in the gallbladder, likely secondary to vicarious excretion. Spleen: The spleen is mildly elongated measuring 12.7 cm. Pancreas: Unremarkable. Adrenal glands: Unremarkable. Kidneys: No renal, ureteral, or bladder calculi are visualized. Bowel: There are no transition zones indicate bowel obstruction. There is no evidence of acute appendicitis. There is no evidence of acute diverticulitis. Peritoneum: There is no free air. There is no significant ascites. There is infiltration of the perivesical fat, and fat in the region the left pelvic sidewall. This likely represents a small amount of hemorrhage. A large retroperitoneal hemorrhage is not visualized. Vasculature: There is an indwelling IVC filter. There is a left femoral venous catheter which extends to the level of the IVC filter. There is infiltration of the fat surrounding the femoral vessels consistent with a small amount of perivascular hemorrhage. Adenopathy: None. Pelvic viscera: There is indwelling Ying catheter. There is mild bladder wall thickening. There is air within the bladder likely iatrogenic. There is infiltration the perivesical fat. There is infiltration of the presacral fat area Skeletal structures: No destructive osseous lesions are seen. IMPRESSION: 1. Interval placement of an IVC filter and left femoral venous catheter 2. Infiltration of the fat surrounding the left iliac vessels. There is infiltration the fat surrounding the bladder. There is also infiltration of the fat within the presacral region. The findings likely represent a small amount of hemorrhage. A large retroperitoneal hemorrhage is not identified. 3. No evidence of bowel obstruction. No evidence of free air 4. Small bilateral pleural effusions and bibasilar atelectasis Electronically signed by: Lawrence Nicole M.D. 12/12/2016 10:09 AM Dictated Date/Time: 12/12/2016 10:03 AM Consultations: vascular surgery Medication Reconciliation New Medications: Aspirin (Aspirin Ec) 81 Mg Tab 81 MG PO DAILY for 30 Days, #30 TAB Rivaroxaban (Xarelto) 20 Mg Tab 20 MG PO QDD for 30 Days, #30 TAB Discontinued Medications: Hydrocodone/Acetaminophen 5MG/325MG ([place] 5MG/325MG) Tab 1-2 TABLET PO Q6 PRN for Pain, #24 TAB For Initial Treatment Ibuprofen (Advil) 200 Mg Tab 200-600 MG PO Q4H, TAB Discharge Exam Physical Exam: General Appearance: no apparent distress Eyes: EOMI ENT: hearing grossly normal Neck: trachea midline Extremities: + pertinent finding (much improved LE edema, no eccymosis) 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, alert, normal mood/affect Skin: normal color, warm/dry Hospital Course Provoked DVT due to tibia fracture and 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 -inpatient on heparin gtt for several days, vascular procedures as above by dr roldan -stable for discharge to home on xarelto --> eventual transition to aspirin alone (ok to be on both currently since low risk for bleeding issues) -outpatient PCP and vascular f/u -all questions answered to the best of our ability and to patient's satisfaction (I apologize for the delinquency of this discharge summary, was to be done by R2 , who was part of patient care and did her discharge, but somehow missed doing the summary) Total Time Spent: Less than 30 minutes This includes examination of the patient, discharge planning, medication reconciliation, and communication with other providers. Discharge Instructions Please refer to the electronic Patient Visit Report (Discharge Instructions) for additional information.
--- NOTE | 2016-12-25 13:37 | DIAGNOSTIC IMAGING REPORT ---
DATE OF PROCEDURE: 12/11/2016 PREOPERATIVE DIAGNOSIS: Iliofemoral thrombosis, left side. POSTOPERATIVE DIAGNOSIS: Same. PROCEDURE: 1. Insertion of inferior vena cava filter. 2. Venacavogram left lower extremity venogram. 3. Insertion of infusion catheter. 4. Thrombolytic therapy. 5. Conscious sedation 41 minutes. SURGEON: Dr. Roldan. ASSISTANTS: None. PROCEDURE INDICATIONS: The patient is a 56-year-old female with left leg swelling and discomfort. She was found to have a iliofemoral thrombosis in the left lower extremity. Thrombolytic therapy was recommended and possible intervention if needed. She understood the risks, options and benefits and agreed go ahead with this procedure. We did recommend inferior vena cava filter due to the amount of thrombus which was present. She understood the risks, options and benefits and agreed to go ahead with procedure and filter insertion. The patient was taken to the angio suite and placed in supine position. After the right side of the neck was prepped and draped in a sterile manner, local anesthetic was administered. Percutaneous puncture was made of the right internal jugular vein using ultrasound guidance. The vein at that point was patent. Good flow was seen. The vein was then punctured under ultrasound guidance and a wire passed down through the superior to the inferior vena cava. Once it was in positioned in the distal inferior vena cava the sheath was inserted. This was passed down to the infrarenal vena cava. A venacavogram was performed showing there was no caval clot. There was suggestion of a left common iliac artery occlusion on the cavogram. The renal veins were seen. The filter was then deployed without difficulty in an upright position. The sheath was then pulled. Pressure was applied. Adequate hemostasis was obtained. Next, the left groin was prepped and draped in a sterile manner. Using ultrasound guidance, the left common femoral vein which was patent on ultrasound was punctured under ultrasound imaging. An 0.035 wire was then inserted in an antegrade fashion in the left iliac vein. In the mid portion of the common iliac vein on the left side, there was some difficulty passing the wire. I finally managed to get the wire passed. A Quick-Cross catheter was inserted and positioning was confirmed. The catheter tip was in the inferior vena cava below the filter. The wire was then reinserted. The venogram done at that time showed that there was a clot throughout the external iliac causing a partial thrombosis. The common iliac artery on left side was completely thrombosed. Collateralization was noted throughout the pelvis. At that point we inserted a 20 cm infusion catheter. This was placed with the tip just into the inferior vena cava. Distal end was in the common femoral vein. Thrombolytic therapy was then begun using tissue plasminogen activator. Sterile dressings were then applied and the patient was transported to the Intensive Care Unit for thrombolytic therapy. She tolerated the procedure well.
--- NOTE | 2016-12-25 13:48 | DIAGNOSTIC IMAGING REPORT ---
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 PROCEDURE: Recheck of thrombolytic therapy, percutaneous angioplasty, left common iliac vein, left common iliac vein stenting, discontinuation of thrombolytics and moderate sedation 1418 to 1503 hours. SURGEON: Dr. Roldan. ANESTHETIC: Local with conscious sedation. PROCEDURE INDICATIONS: The patient is a 56-year-old female with a left iliac vein thrombosis. She is undergoing thrombolytic therapy. She is brought back now for recheck of venogram and intervention if needed. She understood the risks, options and benefits and agreed to have this procedure. The patient was taken to the operating room and placed in supine position. Dressings were removed from the left groin sterilely. The catheters were passed through the sheath into the operative field after being prepped. The wire from the infusion catheter was removed. Hand injection was done around the sheath. This showed flow through the iliac system. We removed the catheter over an 0.035 wire and left the wire in place. Another venogram done showed the left external iliac vein and the proximal left common iliac vein to be patent. There was a tight stenoses seen in the upper third of the left common iliac vein and the vein was patent beyond prior to the junction with the inferior vena cava. 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 We then exchanged the sheath for a new 6-Ar[place] sheath. A 16 x 6 Kerrick was then used and the common iliac vein was dilated. This did show some expanding of the stenotic area but not significantly. 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 This expanded nicely. We wanted to flare this up from the distal ends so we used first a 14 x 4 Kerrick. We then inserted an 18 x 2 Dane high pressure balloon to fully expand the distal end just prior to the inferior vena cava. Excellent flow was then seen on the final completion venogram. No collateral veins were seen at that time. All the flow was going through the common iliac vein in a normal fashion. At that point the sheath was removed. Pressure was applied. Adequate hemostasis was obtained. Sterile dressings were applied to the wound and the patient left the angio suite in good condition and tolerated the procedure well.
== END 2016-12-13 15:30 | disposition home or self-care (01) | DRG 254 ==
LOC: ENRESERVDT → ENRESERVTM → C.EDB 17:11 → C.2T 21:53 → C.MS2W 12-09 13:51 → C.MSICU 12-11 14:45 → C.MSN 12-12 17:34
PROVIDERS: ADMIT Internal Medicine; ATTEND Family Medicine
PROC: 06H03DZ Insertion of Intraluminal Device into Inferior Vena Cava, Percutaneous Approach (ICD-10-PCS; 2016-12-11)
PROC: B51C1ZZ Fluoroscopy of Left Lower Extremity Veins using Low Osmolar Contrast (ICD-10-PCS; 2016-12-11)
PROC: 047D3DZ Dilation of Left Common Iliac Artery with Intraluminal Device, Percutaneous Approach (ICD-10-PCS; principal; 2016-12-12 14:00)
DX: I82.522 Chronic embolism and thrombosis of left iliac vein (principal); Z87.891 Personal history of nicotine dependence; Z88.0 Allergy status to penicillin; Z79.1 Long term (current) use of non-steroidal anti-inflammatories (NSAID)

== ENCOUNTER → 2017-01-03 | Outpatient (CLI) | payer OTHER ==
[~2017-01-03] MED LIST changes: +ASPCH81X PO; +ASPI81TA28 PO; -HYDR-5688 PO; +XRL20 PO
--- NOTE | 2017-01-03 14:33 | DIAGNOSTIC IMAGING REPORT ---
LEFT ANKLE MIN 3 VIEWS CLINICAL HISTORY: LEFT DISTAL FIBULA FX COMPARISON: Left ankle radiograph November 08, 2016. FINDINGS: Alignment of the minimally displaced oblique distal left fibular fracture is unchanged. Fracture line remains evident. There is minimal callus formation, less than expected. Lateral soft tissue swelling is present. There is no significant ankle mortise widening. A screw within the left first metatarsal is present. An osteophyte of the navicular is noted on lateral projection. IMPRESSION: No change in alignment of the minimally displaced oblique distal left fibular fracture. Minimal interval healing, less than expected. Electronically signed by: Daren Gruber M.D. 01/03/2017 2:32 PM Dictated Date/Time: 01/03/2017 2:28 PM
== END | disposition home or self-care (01) ==
LOC: C.RDSM 14:18
PROVIDERS: ATTEND Physician Assistant
DX: M25.572 Pain in left ankle and joints of left foot (principal)

== ENCOUNTER → 2017-01-31 | Outpatient (CLI) | payer OTHER ==
[~2017-01-31] MED LIST changes: -ASPI81TA28 PO
--- NOTE | 2017-01-31 14:37 | DIAGNOSTIC IMAGING REPORT ---
LEFT ANKLE MIN 3 VIEWS CLINICAL HISTORY: LEFT ANKLE PAIN trauma. Pain. COMPARISON: 01/03/2017 DISCUSSION: Oblique fracture distal fibula. No change in overall appearance compared to the prior study. There may have been a slight degree of interval healing. Ankle mortise is aligned anatomically. There is mild flattening of Boehler's angle mild soft tissue edema IMPRESSION: Minimal interval healing of a oblique fracture distal fibula. Alignment is anatomic. Electronically signed by: Hugo Boone M.D. 01/31/2017 2:35 PM Dictated Date/Time: 01/31/2017 2:27 PM
== END | disposition home or self-care (01) ==
LOC: C.RDSM 14:14
PROVIDERS: ATTEND Physician Assistant
DX: M25.572 Pain in left ankle and joints of left foot (principal)

== ENCOUNTER 2017-02-17 06:54 | Day surgery (SDC) | payer OTHER ==
[~2017-02-17] VITALS: Ht 180.3 cm; Wt 79.5 kg
[~2017-02-17 06:54] MED LIST changes: -ASPCH81X PO; +CLINDAMYCIN 600 MG/54 ML D5W IV SCH; +SODIUM CHLORIDE 0.9% 1000ML 1,000 ML IV SCH
[2017-02-17] MEDS ORDERED: ASPCH81X PO (07:22)
[2017-02-17 07:27] VITALS: BP 115/81; PULSE 66; TEMP 36.8; O2SAT 96; Ht 180.3 cm; Wt 79.5 kg
[2017-02-17] MEDS ORDERED: FENTANYL CITRATE INJ 50 MCG/1 ML 2 ML VIAL ONE (07:38)
[2017-02-17] MEDS ORDERED: MIDAZOLAM HCL 1 MG/ML 2ML VIAL ONE (07:38)
--- NOTE | 2017-02-17 07:47 | History and Physical ---
History & Physical Date of Service Feb 17, 2017. History & Physical Chief Complaint Post filter placement for a LLE iliofemoral DVT History of Present Illness The patient is a 56 year old female without significant medical hx, was seen for L iliofemoral DVT noted on CT scan. Pt states she suffered nondisplaced fx of L ankle on 11/08/16 after falling down some steps, and has been in a walking boot since that time. No surgical intervention was required. States she noted pain in L post thigh which she thought was sciatica and began doing stretches on floor. About 1 hr later, her LLE was extremely edematous and appeared reddish-purple. She then came to ED for evaluation. She underwent filter placement and thrombolysis with stent insertion. She had good results with no further swelling of the leg. Denies LUCAS, fever, chills, chest pain, SOB, abd pain, N/V, rest pain, claudication, other complaints. Previous smoker, quit in 2015. Allergies Coded Allergies: Penicillins (Verified Allergy, Unknown, hives, 12/08/16) Home Medications Scheduled Ibuprofen (Advil), 200-600 MG PO Q4H Scheduled PRN Hydrocodone/Acetaminophen 5MG/325MG ([place] 5MG/325MG), 1-2 TABLET PO Q6 PRN for Pain Problem List Medical Problems: (1) Bunion (2) DVT (deep venous thrombosis) (3) Fracture of fibula Surgical / Medical History Hx Cardiac Surgery: No Hx Abdominal Surgery: No Hx Cancer Surgery: No Hx Orthopedic: No Hx Urinary Tract Surgery: No HX Other Surgery: Yes Family History Patient reports no known family medical history. Social History Smoking Status: Former Smoker Hx Tobacco Use In Past Year?: Yes (not in 5 months) Hx Alcohol Use - Type & Amnt: Yes (beer/wine--couple/week) Hx Substance Use -Type & Amnt: No Review of Systems Constitutional: No chills, No fever, No malaise Skin: + change in color Eyes: No visual changes ENMT: No sore throat Respiratory: No cough, No ACHARYA, No hemoptysis, No short of breath Cardiovascular: no edema, No chest pain, No palpitations, No syncope, No intermittent claudication Gastrointestinal: No abdominal pain, No nausea, No vomiting Genitourinary - Female: No dysuria, No hematuria Neurologic: No dizziness, No headache, No lethargy, No numbness, No tingling Physical Exam Constitutional: General Apperance: heathly-appearing, well-nourished, well-developed Level of Distress: NAD Psychiatric: Mental Status: active & alert, normal mood, normal affect Orientation: oriented except where noted, to time, to place, to person Memory: recent memory normal, remote memory normal Head: normocephalic, atraumatic Eyes: EOM: EOMI ENMT: normal ENT inspection, hearing grossly normal Neck: supple, no masses Lungs: Respiratory effort: no dyspnea Auscultation: breath sounds normal, no wheezing, no rales/crackles, no rhonchi Cardiovascular: Apical Impulse: not displaced Heart Auscultation: RRR, no murmurs, no rubs, no gallops Peripheral Pulses: Pulses: full and equal, in all extremities except if noted Bruits: none appreciated Carotid Pulse: normal on the left, normal on the right Brachial Pulses: normal on the left, normal on the right Radial Pulse: normal on the left, normal on the right Femoral Pulse: normal on the left, normal on the right Posterior Tibialis Pulse: normal on the left, normal on the right Dorsalis Pedis Pulse: normal on the left, normal on the right Abdomen: Bowel Sounds: normal Inspection & Palpation: soft, non-distended, no tenderness, guarding & rebound Musculoskeletal: normal strength (5/5 throughout), normal tone Extremities: Upper Right: no cyanosis, no edema, no varicosities Upper Left: no cyanosis, no edema, no varicosities Lower Right: no cyanosis, no edema, no varicosities Lower Left: no cyanosis, no clubbing, no ulcers, no edema Neurologic: Cranial Nerves: grossly intact Sensation: grossly intact Assessment and Plan ASSESSMENT and PLAN: L iliofemoral DVT in the past with filter insertion Plan: Patient is admitted for removal of her filter. I have discussed the risks options and benefits of the procedure with the patient. The patient understands the risks options and benefits and agrees to the procedure.
--- NOTE | 2017-02-17 07:47 | Procedure Note ---
Pre-Mod Sedation Assessment General Date of Moderate Sedation: Feb 17, 2017. Vital Signs: Vital Signs Past 12 Hours Date Time Temp Pulse Resp B/P (MAP) Pulse Ox O2 Delivery O2 Flow Rate FiO2 02/17/17 07:27 36.8 66 18 115/81 (92) 96 Room Air Pre-Sedation Airway Assessment Oral Cavity: WNL Hx of Sleep Apnea: No Smoking Status: Former Smoker Mallampati Classification: Class I ASA Classification: Class II Notes The planned sedation has been discussed with the patient and consent obtained. I have identified the patient, determined the appropriateness of sedation and have assessed the patient immediately prior to the procedure. All medicine(s) and interventions are by my order.
[2017-02-17 08:03] LABS: BUN/CREATININE RATIO 13.5 (10-20); CREATININE 1.2 mg/dl (0.60-1.20)
[2017-02-17 08:06] VITALS: BP 115/81; PULSE 66; TEMP 36.8; O2SAT 96
[2017-02-17] MEDS ORDERED: MIDAZOLAM HCL 1 MG/ML 2ML VIAL IV ONE (08:27)
[2017-02-17] MEDS ORDERED: LIDOCAINE HCL 1% 20 ML VIAL SQ ONE (08:28)
[2017-02-17] MEDS ORDERED: FENTANYL CITRATE INJ 50 MCG/1 ML 2 ML VIAL IV ONE ×2 (08:28→08:41)
--- NOTE | 2017-02-17 09:04 | Procedure Note ---
Post-Moderate Sedation Plan General Date of Moderate Sedation Feb 17, 2017. Vital Signs: Vital Signs Past 12 Hours Date Time Temp Pulse Resp B/P (MAP) Pulse Ox O2 Delivery O2 Flow Rate FiO2 02/17/17 08:06 36.8 66 18 115/81 96 Room Air 02/17/17 07:27 36.8 66 18 115/81 (92) 96 Room Air Review - Discharge Plan Post Moderate Sedation Plan: On clinical assessment, the patient appears to have tolerated the conscious sedation without complications. Patient is recovering as anticipated. Patient will continue to be monitored by nursing and may be discharged when conscious sedation discharge criteria are met.
--- NOTE | 2017-02-17 09:05 | [facility] Post Operative Brief Note ---
Immediate Operative Summary Operative Date Feb 17, 2017. Pre-Operative Diagnosis May Thurner Syndrome, post IVC filter insertion Post-Operative Diagnosis Same Procedure(s) Performed Removal Of Vena Cava Filter, Moderate sedation from 826 - 900. Surgeon Dr. 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
--- NOTE | 2017-02-17 09:06 | Discharge Instructions ---
Discharge Instructions Date of Service Feb 17, 2017. Visit Reason for Visit: S/P Ivc Filter Discharge Discharge Diagnosis / Problem: Post IVC filter insertion Discharge Goals Goal(s): Therapeutic intervention Activity Recommendations Activity Limitations: resume your previous activity Lifting Limitations: none Exercise/Sports Limitations: rest today Shower/Bathe: no limitations Driving or Machine Use: resume 1 day after discharge Anesthesia . Post Anesthesia Instructions: If you have had General Anesthesia or IV Sedation: * Do not drive today. * Resume driving when surgeon permits. * Do not make important decisions or sign legal documents today. * Call surgeon for: 1. Temperature elevations greater than 101 degrees F. 2. Uncontrollable pain. 3. Excessive bleeding. 4. Persistent nausea and vomiting. 5. Medication intolerance (nausea, vomiting or rash). * For nausea and vomiting use only clear liquids such as: tea, soda, bouillon until nausea subsides, then gradually increase diet as tolerated. * If you have any concerns or questions, call your surgeon's office. If physician is unavailable and it is an emergency, call 911 or go to the nearest emergency room. . Instructions / Follow-Up Instructions / Follow-Up Call [phone] to schedule a follow up appointment if one not already scheduled. SPECIAL CARE INSTRUCTIONS: Medications: * Continue to take your medications as directed. If you have been given a prescription for Plavix, please fill it immediately and take as directed. Incision Care: * Your puncture site may have some bruising and minor swelling for about one week. * You will have a small dressing covering your puncture site. You may remove the dressing after 24 hours and shower. You may let the warm soapy water run over it, but be sure to dry the puncture site well and keep it dry. * DO NOT IMMERSE THE INCISION IN A TUB/POOL/etc. UNTIL HEALED. * Puncture sites should be kept covered with a band-aid until it begins to heal. Restrictions: * Depending on whether you leg or arm was punctured to access the arteries, you will be required to lay flat, hold your arm still, or both, for about 4 hours after the procedure to prevent bleeding. * Limit your activity for the first 48 hours. You may walk and go up and down steps. Avoid excessive bending or movement at the puncture site. Possible Complications: * Excessive Swelling - after blood flow is improved you may notice increased swelling in the lower legs. This is a normal response. This usually depends on the amount of blockages in the leg, how long they have been there prior to your procedure and how much blood flow was restored. Elevating your legs will help to improve this. Please notify our office ([phone] ) if the swelling does not go away after lying in bed overnight. * Infection/Drainage/Bleeding - Drainage or bleeding from the puncture site should be minimal. If you have excessive bleeding or drainage, call our office ([phone]) right away. * Pain - You may experience some mild pain or soreness at your puncture site. If your pain does not improve, please contact our office ([phone]). Call your doctor and seek emergent treatment if you develop: * Temperature above 101 degrees * Any fever or chills * Any redness or purulent drainage from the puncture site * Any new dusky/blue colored toes or feet with coolness or sharp or aching pain. SKIN IRRITATION: * You may experience some redness and/or swelling in the area where radiation was administered. If any skin irritation occurs, please contact your family physician. FOLLOW UP VISIT: Keep any scheduled doctor appointments. Diet Recommendations Recommended Home Diet: resume previous diet Procedures Procedures Performed: Removal Of Vena Cava Filter, Moderate sedation from 826 - 900. Pending Studies Studies pending at discharge: no Medical Emergencies . Who to Call and When: Medical Emergencies: If at any time you feel your situation is an emergency, please call 911 immediately. . Non-Emergent Contact Non-Emergency issues call your: Surgeon . . "Provider Documentation" section prepared by Marcus Roldan. .
[2017-02-17 09:15] VITALS: BP 106/68; PULSE 67; TEMP 36.4; O2SAT 97
[2017-02-17 09:45] VITALS: BP 97/63; PULSE 67; O2SAT 97
[2017-02-17 10:10] VITALS: BP 103/64; PULSE 64; TEMP 37; O2SAT 98
--- NOTE | 2017-03-17 11:18 | DIAGNOSTIC IMAGING REPORT ---
DATE OF PROCEDURE: 02/17/2017 PREOPERATIVE DIAGNOSIS: May-Thurner syndrome, left iliofemoral deep vein thrombosis status iliac vein stent, status post inferior vena cava filter. POSTOPERATIVE DIAGNOSIS: Same. PROCEDURE: Ultrasound guided right IJ access site, removal of IVC filter. SURGEON: Dr. Marcus Roldan. MEDICINE WORKER: Dr. Cherri Flores. ANESTHESIA: Conscious sedation plus local, 34 minutes. ESTIMATED BLOOD LOSS: 10 mL COMPLICATIONS: None. CONDITION: Stable. INDICATIONS: Ms. 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 She underwent thrombolysis and stenting of her left iliac vein as well as IVC filter placement in October of this year. Her DVT has resolved and she no longer requires IVC filter. For this reason, she was recommended to undergo a filter removal. The risks, benefits and alternatives were discussed with the patient and she consented to the procedure. DESCRIPTION OF PROCEDURE: The patient was taken to the [facility] and placed in supine position. Her right neck and chest were prepped and draped in the usual sterile fashion. A safety timeout was performed and the patient, procedure, and sidedness were correctly identified. The patient was given 2 mg of Versed, 50 of fentanyl for sedation. Ultrasound was used to assess the right IJ, which appeared large and patent. Local anesthesia was used to anesthetize the skin overlying the right IJ. An 18 gauge access needle was used to access the right IJ under ultrasound guidance. A wire was placed through the access needle down into the IVC. A small elda was made at the needle access site. The access needle was removed and a dilator placed over the wire. The removal sheath was placed over the wire down into the IVC, several centimeters above the IVC filter. Snare was placed through the sheath. After several attempts, the IVC filter was able to be snared and removed without difficulty. On completion, cavogram was performed that showed no residual thrombus. The sheath was removed and manual pressure was held over the IJ access site. Hemostasis was achieved. A sterile dressing was applied. The patient was transferred to the recovery room in stable condition. She tolerated the procedure well and there were no immediate complications. Dr. Marcus Roldan was present for the entire procedure. I, Dr. Roldan was present and scrubbed for the entire procedure. [facility]
== END 2017-02-17 10:21 | disposition home or self-care (01) ==
LOC: C.ACU 06:54
PROVIDERS: ATTEND Surgery Vascular Surgery
DX: Z45.89 Encounter for adjustment and management of other implanted devices (principal); Z86.718 Personal history of other venous thrombosis and embolism; Z87.891 Personal history of nicotine dependence

== ENCOUNTER → 2017-03-17 | Outpatient (CLI) | payer OTHER ==
[~2017-03-17] MED LIST changes: +ASPCH81X PO; -CLINDAMYCIN 600 MG/54 ML D5W IV SCH; -SODIUM CHLORIDE 0.9% 1000ML 1,000 ML IV SCH
--- NOTE | 2017-03-17 13:14 | DIAGNOSTIC IMAGING REPORT ---
LEFT ANKLE MIN 3 VIEWS CLINICAL HISTORY: FRACTURE OF LEFT DISTAL FIBULA COMPARISON: Left ankle radiographs January 31, 2017. FINDINGS: Alignment of the healing oblique distal left fibular fracture is unchanged since prior exam of January 31, 2017. Interval healing is noted. Healing is near complete. There is no ankle mortise widening. No additional fractures are identified on this exam. 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 There is osteophytosis of the distal navicular. IMPRESSION: No change in alignment of the distal left fibular fracture with near complete healing. Electronically signed by: Daren Gruber M.D. 03/17/2017 1:12 PM Dictated Date/Time: 03/17/2017 1:11 PM
== END | disposition home or self-care (01) ==
LOC: C.RDSM 12:49
PROVIDERS: ATTEND Physician Assistant
DX: S82.65XD Nondisplaced fracture of lateral malleolus of left fibula, subsequent encounter for closed fracture with routine healing (principal); X58.XXXD Exposure to other specified factors, subsequent encounter

== ENCOUNTER → 2017-09-03 | Outpatient (CLI) | payer OTHER ==
--- NOTE | 2017-09-03 14:53 | DIAGNOSTIC IMAGING REPORT ---
LEFT ANKLE 3 VIEWS HISTORY: Left ankle pain. RIGHT WRIST PAIN AND LEFT DISTAL FIBULA FX COMPARISON: Left ankle 03/17/2017. FINDINGS: The distal fibular fracture is completely healed. No acute fracture or dislocation within the left ankle. Mild soft tissue swelling persists. Stable abnormal appearance to the dorsal navicular bone. Given the long-term stability this could be due to an old fracture or an osteophyte. No radiopaque foreign bodies. IMPRESSION: 1. No acute fracture or dislocation within the left ankle. 2. Healed distal fibular fracture. 3. Abnormal configuration at the dorsal the navicular bone which is also unchanged. Given the long-term stability this could be due to an old fracture or an osteophyte. Electronically signed by: Barney Garcia M.D. 09/03/2017 2:52 PM Dictated Date/Time: 09/03/2017 2:49 PM
--- NOTE | 2017-09-03 14:57 | DIAGNOSTIC IMAGING REPORT ---
RIGHT WRIST 3 VIEWS CLINICAL HISTORY: Right wrist pain. Fall yesterday. FINDINGS: 3 views of the right wrist are obtained. No prior studies are available for comparison at the time of dictation. The skeletal structures are osteopenic. Cortical irregularity is questioned involving the distal aspect of the scaphoid. Additionally, there is an age indeterminant avulsion fracture of the triquetrum. Overlying soft tissue edema is noted. Mild arthritic change is present at the first carpometacarpal joint. IMPRESSION: 1. There is cortical regularity questioned involving the distal scaphoid. Fracture is not excluded. Correlation with a dedicated scaphoid view is recommended. 2. There is an age indeterminant avulsion fracture of the triquetrum suggested on the lateral projection. 3. Soft tissue swelling is present around the wrist. Electronically signed by: Yemi Villatoro M.D. 09/03/2017 2:55 PM Dictated Date/Time: 09/03/2017 2:52 PM
--- NOTE | 2017-09-03 15:38 | DIAGNOSTIC IMAGING REPORT ---
RIGHT WRIST 2 VIEWS HISTORY: RIGHT WRIST PAIN AFTER A FALL COMPARISON: None. FINDINGS: A 4 mm well-corticated ossific density along the dorsal aspect of the wrist consistent with an old triquetral fracture. No acute fracture within the scaphoid. Soft tissue swelling within the right wrist. No radiopaque foreign bodies. IMPRESSION: 1. No acute fractures within the scaphoid. 2. Soft tissue swelling within the wrist. 3. Old triquetral fracture. Electronically signed by: Barney Garcia M.D. 09/03/2017 3:37 PM Dictated Date/Time: 09/03/2017 3:33 PM
== END | disposition home or self-care (01) ==
LOC: C.RDSM 14:38
PROVIDERS: ATTEND Physician Assistant
DX: S82.65XD Nondisplaced fracture of lateral malleolus of left fibula, subsequent encounter for closed fracture with routine healing (principal); M25.531 Pain in right wrist; X58.XXXD Exposure to other specified factors, subsequent encounter; Z87.81 Personal history of (healed) traumatic fracture

== ENCOUNTER → 2017-09-15 | Outpatient (CLI) | payer OTHER ==
--- NOTE | 2017-09-15 11:35 | DIAGNOSTIC IMAGING REPORT ---
R WRIST W/NAVICULAR MIN 3 VIEWS CLINICAL HISTORY: HEALING RIGHT WRIST FX COMPARISON: Right wrist radiographs September 03, 2017. FINDINGS: No acute fracture of the right wrist is identified. An old triquetral fracture is unchanged in appearance since exam of September 03, 2017. There is mild osteoarthritis of the radiocarpal articulation. IMPRESSION: 1. No acute fracture within the right wrist. 2. Old triquetral fracture. Electronically signed by: Daren Gruber M.D. 09/15/2017 11:33 AM Dictated Date/Time: 09/15/2017 11:32 AM
== END | disposition home or self-care (01) ==
LOC: C.RDSM 11:03
PROVIDERS: ATTEND Physician Assistant
DX: M25.531 Pain in right wrist (principal); Z87.81 Personal history of (healed) traumatic fracture

== ENCOUNTER → 2017-09-29 | Outpatient (CLI) | payer OTHER ==
[2017-10-02 02:40] LABS: ANTI-dsDNA RECOMBINANT 255X 1 IU/ML; COMPLEMENT C3 TC 44859W 86 MG/DL (90-180); COMPLEMENT C4 TC 44982E 23 MG/DL (16-47)
== END | disposition home or self-care (01) ==
LOC: C.LAB 13:23
PROVIDERS: ATTEND Internal Medicine
DX: R89.4 Abnormal immunological findings in specimens from other organs, systems and tissues (principal)

== ENCOUNTER → 2018-04-20 | Outpatient (CLI) | payer OTHER ==
[2018-04-20 13:07] LABS: BASO % 0.4 %; BASO ABS # 0.02 K/uL (0-0.2); EOS % 2.2 %; EOS ABS # 0.12 K/uL (0-0.5); HEMATOCRIT 40.9 % (37-47); HEMOGLOBIN 13.5 g/dL (12.0-16.0); IG# 0.01 K/uL (0.00-0.02); LYMPH % 23.8 %; LYMPH ABS # 1.32 K/uL (1.2-3.4); MEAN CELL VOLUME 96.7 fL (80-100); MEAN CORPUSCULAR HEMOGLOBIN 31.9 pg (25-34); MEAN PLATELET VOLUME 12.3 fL (7.4-10.4); MONO % 6.1 %; MONO ABS # 0.34 K/uL (0.11-0.59); NEUT % 67.3 %; NEUT ABS # 3.74 K/uL (1.4-6.5); PLATELET COUNT 206 K/uL (130-400); RED CELL DISTRIBUTION WIDTH CV 13.2 % (11.5-14.5); RED CELL DISTRIBUTION WIDTH SD 46.3 fL (36.4-46.3); WHITE BLOOD COUNT 5.55 K/uL (4.8-10.8)
[2018-04-20 13:43] LABS: ALBUMIN 4.2 gm/dl (3.4-5.0); ALKALINE PHOSPHATASE 68 U/L (45-117); ALT/SGPT 25 U/L (12-78); AST/SGOT 17 U/L (15-37); BLOOD UREA NITROGEN 13 mg/dl (7-18); CALCIUM 9.3 mg/dl (8.5-10.1); CARBON DIOXIDE 27 mmol/L (21-32); GLUCOSE 87 mg/dl (70-99); SODIUM 138 mmol/L (136-145); TOTAL PROTEIN 7.9 gm/dl (6.4-8.2)
[2018-04-20 22:54] LABS: HEP C IGG 13 YRS+OLDER_RFLX NEG (NEG)
== END | disposition home or self-care (01) ==
LOC: C.LAB1850 11:51
PROVIDERS: ATTEND Internal Medicine
DX: L40.50 Arthropathic psoriasis, unspecified (principal)